=== PATIENT | male | born 1940 | race African-American/Black ===

== ENCOUNTER 2016-05-14 09:39 | Emergency (ER) | payer MEDICAID, MEDICARE ==
[~2016-05-14] VITALS: Ht 180.3 cm; Wt 55.0 kg
[2016-05-14] MEDS ORDERED: IPRATROPIUM BROMIDE (0.02%) 0.5MG/2.5ML NEB HHN STA (09:56)
[2016-05-14] MEDS ORDERED: ALBUTEROL (0.083%) 2.5MG/3ML NEB HHN STA (09:56)
[2016-05-14] MEDS ORDERED: METHYLPREDNISOLONE SOD SUCC 125 MG/2 ML VIAL IV STA (09:56)
[2016-05-14 10:26] LABS: BASOPHILS % 0.8 % (0.0-2.0); EOSINOPHILS % 11.3 % (0.0-5.0); HEMATOCRIT. 45.7 % (42.0-52.0); HEMOGLOBIN. 15.2 g/dL (14.0-18.0); LYMPHOCYTES % 26.1 % (20.0-50.0); MEAN CORPUSCULAR HEMOGLOBIN 31.9 pg (28.0-32.0); MEAN CORPUSCULAR HGB CONC 33.3 g/dL (31.0-37.0); MEAN CORPUSCULAR VOLUME 95.9 fL (80.0-94.0); MEAN PLATELET VOLUME 7.9 fl (7.4-10.4); MONOCYTES % 7.5 % (2.0-8.0); NEUTROPHILS % 54.3 % (40.0-76.0); PLATELET 164 x1000/uL (130-400); RED BLOOD CELL COUNT 4.76 mill/uL (4.7-6.1); RED CELL DISTRIBUTION WIDTH 14.5 % (11.6-14.6); WHITE BLOOD COUNT 4.9 x1000/uL (4.5-11.0)
[2016-05-14 10:35] LABS: CALCIUM 8.8 mg/dL (8.5-10.1); CHLORIDE 102 mEq/L (98-107); INDEX HEMOLYSI 1 (1-3); INDEX ICTERIC 1 (1-4); INDEX LIPEMIC 1 (1-3)
[2016-05-14 10:40] LABS: INR 1.1; PROTHROMBIN TIME 11.7 sec
[2016-05-14 10:41] LABS: ALANINE AMINOTRANSFERASE 29 IU/L (13-61); ALBUMIN 3.8 g/dL (3.4-5.0); ANION GAP 11; CARBON DIOXIDE 32 mEq/L (21-32); LIPASE 85 IU/L (73-393); UREA NITROGEN BLOOD 11 mg/dL (7-21); eGFR > 60 mL/min (>60)
[2016-05-14 10:44] LABS: NT PRO B-TYPE NATRIURETIC PEP 135 pg/mL (5-125); TROPONIN I 0.04 ng/mL (0.00-0.04)
[2016-05-14 11:44] VITALS: BP 150/89
== END 2016-05-14 12:59 | disposition home or self-care (01) ==
LOC: ER 10:45
DX: J20.9 Acute bronchitis, unspecified (principal); I10 Essential (primary) hypertension; F17.210 Nicotine dependence, cigarettes, uncomplicated
CPT/HCPCS: 36415; 71010; 80053; 83605; 83690; 83880; 84484; 85025; 85610; 87040; 93005; 94644; 96374; 99285; J2930; J7611

== ENCOUNTER 2016-09-20 08:03 | Inpatient (IN) | payer MEDICARE ==
[~2016-09-20] VITALS: Ht 157.5 cm; Wt 46.7 kg
[2016-09-20] MEDS ORDERED: METHYLPREDNISOLONE SOD SUCC 125 MG/2 ML VIAL IV STA (08:21)
[2016-09-20] MEDS ORDERED: LEVOFLOXACIN 750MG PREMIX 150 ML IV ONE (08:30)
[2016-09-20] MEDS ORDERED: IPRATROPIUM/ALBUTEROL 0.5-3(2.5)MG/3ML NEB HHN ONE (08:30)
[2016-09-20] MEDS ORDERED: MAGNESIUM 2 G PREMIX 50 ML IV ONE (08:30)
[2016-09-20 08:43] LABS: HEMATOCRIT. 45.5 % (42.0-52.0); HEMOGLOBIN. 15.5 g/dL (14.0-18.0); MEAN CORPUSCULAR HEMOGLOBIN 32.3 pg (28.0-32.0); MEAN CORPUSCULAR VOLUME 94.8 fL (80.0-94.0); MEAN PLATELET VOLUME 8.5 fl (7.4-10.4); PLATELET 153 x1000/uL (130-400)
[2016-09-20 08:50] LABS: INR 1.1; PARTIAL THROMBOPLASTIN TIME 30.6 sec (24.0-34.0); PROTHROMBIN TIME 11.1 sec
[2016-09-20 09:00] LABS: CARBON DIOXIDE 33 mEq/L (21-32); CHLORIDE 105 mEq/L (98-107); CREATINE KINASE 127 IU/L (39-308); TROPONIN I 0.04 ng/mL (0.00-0.04)
[2016-09-20 09:14] LABS: BG BASE EXCESS -2.1 mmol/L (-2.0-2.0); BG CARBOXYHEMOGLOBIN 1.1 % (0.5-1.5); BG DEOXYHEMOGLOBIN 3.5 % (0.0-5.0); BG FRACTION INSPIRED OXYGEN 21; BG HCO3 ACT 22.2 mmol/L (22.0-26.0); BG METHEMOGLOBIN 0.3 % (0.0-1.5); BG OXYGEN SATURATION 96.5 % (92.0-98.5); BG OXYHEMOGLOBIN 95.1 % (94.0-97.0); BG PCO2 36.6 mmHg (35.0-45.0); BG PO2 88.5 mmHg (75.0-100.0); BG SAMPLE SITE RIGHT BRACHIAL; BG TOTAL HEMOGLOBIN 14.9 g/dL (12.0-18.0); BG VENT MODE ROOM AIR
[2016-09-20 09:41] LABS: PLATELET ESTIMATE NORMAL
[2016-09-20 11:41] LABS: CLARITY URINE TURBID (CLEAR); COLOR URINE YELLOW (YELLOW); GLUCOSE URINE NEGATIVE (NEGATIVE); KETONES URINE NEGATIVE (NEGATIVE); LEUKOCYTE ESTERASE URINE NEGATIVE (NEGATIVE); NITRITE URINE POSITIVE (NEGATIVE); OCCULT BLOOD URINE NEGATIVE (NEGATIVE); PROTEIN URINE NEGATIVE (NEGATIVE); SPECIFIC GRAVITY URINE 1.011 (1.005-1.030); UROBILINOGEN URINE 0.2 E.U./dL (0.2-1.0)
[2016-09-20 13:50] VITALS: BP 154/105
[2016-09-20 13:55] VITALS: BP 164/88
[2016-09-20] MEDS ORDERED: DEXT 5%/0.45% NACL 1,000 ML IV SCH (15:15)
[2016-09-20] MEDS ORDERED: HYDROCODONE/ACETAMINOPHEN 5/325MG TABLET PO PRN (15:15)
[2016-09-20] MEDS ORDERED: ONDANSETRON HCL 4MG/2ML VIAL IV PRN (15:15)
[2016-09-20] MEDS ORDERED: IPRATROPIUM/ALBUTEROL 0.5-3(2.5)MG/3ML NEB HHN PRN (15:15)
[2016-09-20] MEDS ORDERED: ACETAMINOPHEN 325MG TABLET PO PRN (15:15)
[2016-09-20 16:00] VITALS: BP 164/88
[2016-09-20] MEDS ORDERED: PANTOPRAZOLE SODIUM 40 MG/VIAL IV NR (16:45)
[2016-09-20] MEDS: DOCUSATE SODIUM 100MG CAPSULE PO SCH (17:00)
[2016-09-20] MEDS ORDERED: ENOXAPARIN 40MG/0.4ML SYR SUBCUT NR (18:00)
[2016-09-20] MEDS: DEXT 5%/0.45% NACL 1000ML 1,000 ML IV SCH (18:07)
[2016-09-20 20:00] VITALS: BP 131/78
[2016-09-20] MEDS: METHYLPREDNISOLONE SOD SUCC 40 MG/ML VIAL IV SCH (21:08)
[2016-09-20] MEDS: IPRATROPIUM/ALBUTEROL 0.5-3(2.5)MG/3ML NEB HHN SCH (21:13)
[2016-09-21] VITALS: BP 140/78
[2016-09-21] MEDS: IPRATROPIUM/ALBUTEROL 0.5-3(2.5)MG/3ML NEB HHN SCH ×4 (02:18→21:17)
[2016-09-21 04:00] VITALS: BP 114/70
[2016-09-21] MEDS: METHYLPREDNISOLONE SOD SUCC 40 MG/ML VIAL IV SCH (05:15)
[2016-09-21] MEDS: DEXT 5%/0.45% NACL 1000ML 1,000 ML IV SCH ×2 (06:26→18:03)
[2016-09-21 06:37] LABS: BASOPHILS % 0.1 % (0.0-2.0); HEMATOCRIT. 36.4 % (42.0-52.0); HEMOGLOBIN. 12.3 g/dL (14.0-18.0); LYMPHOCYTES % 12.8 % (20.0-50.0); MEAN CORPUSCULAR HEMOGLOBIN 32.3 pg (28.0-32.0); MEAN CORPUSCULAR VOLUME 95.1 fL (80.0-94.0); MEAN PLATELET VOLUME 9.1 fl (7.4-10.4); MONOCYTES % 3.3 % (2.0-8.0); NEUTROPHILS % 83.8 % (40.0-76.0); PLATELET 133 x1000/uL (130-400); RED BLOOD CELL COUNT 3.82 mill/uL (4.7-6.1); RED CELL DISTRIBUTION WIDTH 13.9 % (11.6-14.6)
[2016-09-21 08:00] VITALS: BP 139/80
[2016-09-21 08:01] LABS: CARBON DIOXIDE 28 mEq/L (21-32); CHLORIDE 103 mEq/L (98-107)
[2016-09-21] MEDS: ASPIRIN 81MG TABLET PO SCH (09:00)
[2016-09-21] MEDS: DOCUSATE SODIUM 100MG CAPSULE PO SCH ×2 (09:00→17:07)
[2016-09-21] MEDS: PANTOPRAZOLE SODIUM 40 MG/VIAL IV SCH (09:24)
[2016-09-21] MEDS: ENOXAPARIN 40MG/0.4ML SYR SUBCUT SCH (09:25)
[2016-09-21 12:00] VITALS: BP 133/65
[2016-09-21] MEDS: GUAIFENESIN 600MG ER TABLET PO SCH ×2 (14:15→20:35)
[2016-09-21 16:00] VITALS: BP 130/68
[2016-09-21] MEDS ORDERED: ENOXAPARIN 40MG/0.4ML SYR SUBCUT SCH (16:00)
[2016-09-21 20:00] VITALS: BP 137/93
[2016-09-21] MEDS: BUDESONIDE 0.5MG/2ML NEB HHN SCH (21:18)
[2016-09-22] VITALS: BP 144/93
[2016-09-22] MEDS: IPRATROPIUM/ALBUTEROL 0.5-3(2.5)MG/3ML NEB HHN SCH ×2 (01:02→09:44)
[2016-09-22 04:00] VITALS: BP 139/76
[2016-09-22] MEDS: DEXT 5%/0.45% NACL 1000ML 1,000 ML IV SCH (06:36)
[2016-09-22 08:00] VITALS: BP 152/89
[2016-09-22] MEDS: DOCUSATE SODIUM 100MG CAPSULE PO SCH (08:38)
[2016-09-22] MEDS: GUAIFENESIN 600MG ER TABLET PO SCH (08:38)
[2016-09-22] MEDS: ASPIRIN 81MG TABLET PO SCH (08:38)
[2016-09-22] MEDS: PANTOPRAZOLE SODIUM 40 MG/VIAL IV SCH (08:39)
[2016-09-22] MEDS: ENOXAPARIN 40MG/0.4ML SYR SUBCUT SCH (08:39)
[2016-09-22] MEDS ORDERED: LEVOFLOXACIN 750MG PREMIX 150 ML IV SCH ×2 (09:00)
[2016-09-22] MEDS: BUDESONIDE 0.5MG/2ML NEB HHN SCH (09:44)
[2016-09-22] MEDS ORDERED: NA PHOS,M-B/NA PHOS,DI-BA ENEMA 118ML PR SCH (11:45)
[2016-09-22 11:51] VITALS: BP 120/78
[2016-09-22 12:00] VITALS: BP 128/86
== END 2016-09-22 15:15 | disposition home or self-care (01) | DRG 871 ==
LOC: ER 08:13 → 6WST 09:52 → ENRESERV 13:00
PROVIDERS: ADMIT Hospitalist; ATTEND Hospitalist
DX: A41.9 Sepsis, unspecified organism (principal); E43 Unspecified severe protein-calorie malnutrition; J96.00 Acute respiratory failure, unspecified whether with hypoxia or hypercapnia; J44.1 Chronic obstructive pulmonary disease with (acute) exacerbation; N39.0 Urinary tract infection, site not specified; Z68.1 Body mass index [BMI] 19.9 or less, adult; I10 Essential (primary) hypertension; K21.0 Gastro-esophageal reflux disease with esophagitis; M41.9 Scoliosis, unspecified; R13.19 Other dysphagia; Z87.891 Personal history of nicotine dependence
CPT/HCPCS: 36415; 36600; 71010; 80048; 80053; 81001; 82375; 82550; 82805; 83605; 83690; 83880; 84443; 84484; 85025; 85610; 85730; 87040; 92610; 93005; 93970; 94640; 96365; 96366; 96367; 96375; 99285; C1893; C9113; J1650; J1956; J2920; J2930; J3475; J3490; J7620; J7626

== ENCOUNTER 2016-11-18 03:32 | Inpatient (IN) | payer MEDICARE ==
[~2016-11-18] VITALS: Ht 175.3 cm; Wt 52.2 kg
[2016-11-18] MEDS ORDERED: ALBUTEROL (0.083%) 2.5MG/3ML NEB HHN STA (03:59)
[2016-11-18] MEDS ORDERED: IPRATROPIUM BROMIDE (0.02%) 0.5MG/2.5ML NEB HHN STA (03:59)
[2016-11-18] MEDS ORDERED: METHYLPREDNISOLONE SOD SUCC 125 MG/2 ML VIAL IV STA (03:59)
[2016-11-18 04:50] LABS: HEMATOCRIT. 41.7 % (42.0-52.0); MEAN CORPUSCULAR VOLUME 95.5 fL (80.0-94.0); MEAN PLATELET VOLUME 8.3 fl (7.4-10.4); PLATELET 139 x1000/uL (130-400); RED BLOOD CELL COUNT 4.37 mill/uL (4.7-6.1); RED CELL DISTRIBUTION WIDTH 14.3 % (11.6-14.6)
[2016-11-18 05:08] LABS: CARBON DIOXIDE 32 mEq/L (21-32); CHLORIDE 103 mEq/L (98-107); TROPONIN I 0.04 ng/mL (0.00-0.04)
[2016-11-18 05:46] LABS: BG BASE EXCESS 3.1 mmol/L (-2.0-2.0); BG CARBOXYHEMOGLOBIN 1.9 % (0.5-1.5); BG DEOXYHEMOGLOBIN 0.7 % (0.0-5.0); BG FRACTION INSPIRED OXYGEN 60; BG METHEMOGLOBIN 0.4 % (0.0-1.5); BG OXYGEN SATURATION 99.3 % (92.0-98.5); BG PCO2 49.4 mmHg (35.0-45.0); BG PH 7.387 (7.350-7.450); BG PO2 247.9 mmHg (75.0-100.0); BG SAMPLE SITE RIGHT FEMORAL; BG TOTAL HEMOGLOBIN 14.8 g/dL (12.0-18.0); BG VENT MODE ON TREATMENT
[2016-11-18 07:28] LABS: PLATELET ESTIMATE NORMAL
[2016-11-18] MEDS ORDERED: IPRATROPIUM/ALBUTEROL 0.5-3(2.5)MG/3ML NEB INH PRN (08:00)
[2016-11-18] MEDS ORDERED: DIPHENHYDRAMINE 50MG/ML VIAL IV PRN (08:00)
[2016-11-18] MEDS ORDERED: NA PHOS,M-B/NA PHOS,DI-BA ENEMA 118ML PR PRN (08:00)
[2016-11-18] MEDS ORDERED: CLONIDINE 0.1MG TABLET PO PRN (08:00)
[2016-11-18] MEDS ORDERED: DOCUSATE SODIUM 100MG CAPSULE PO PRN (08:00)
[2016-11-18] MEDS ORDERED: ONDANSETRON HCL 4MG/2ML VIAL IV PRN (08:00)
[2016-11-18] MEDS ORDERED: ACETAMINOPHEN 325MG TABLET PO PRN (08:00)
[2016-11-18] MEDS ORDERED: LORAZEPAM 2MG/ML CPJ IV PRN (08:00)
[2016-11-18] MEDS ORDERED: MAGNESIUM/ALUMINUM HYDROXIDE/SIMETHICONE 30ML UDC PO PRN (08:00)
[2016-11-18 09:30] VITALS: BP 153/87
[2016-11-18 09:40] VITALS: BP 153/87
[2016-11-18] MEDS: GUAIFENESIN/DM 600MG/30MG ER TAB 12HR PO SCH ×2 (10:20→21:00)
[2016-11-18] MEDS: AMLODIPINE 10MG TABLET PO SCH (10:21)
[2016-11-18] MEDS: ENOXAPARIN 40MG/0.4ML SYR SUBCUT SCH (10:22)
[2016-11-18] MEDS: FAMOTIDINE 20MG/2ML VIAL IV SCH (10:22)
[2016-11-18] MEDS: LEVOFLOXACIN 500MG PREMIX 100 ML IV SCH (11:05)
[2016-11-18 12:00] VITALS: BP 138/79
[2016-11-18] MEDS: METHYLPREDNISOLONE SOD SUCC 125 MG/2 ML VIAL IV SCH ×2 (14:34→23:22)
[2016-11-18 16:00] VITALS: BP 140/89
[2016-11-18 16:19] LABS: CREATINE KINASE MB FRACTION 2.9 ng/mL (0.5-3.6); TROPONIN I 0.03 ng/mL (0.00-0.04)
[2016-11-18 20:00] VITALS: BP 132/83
[2016-11-18] MEDS ORDERED: ZOLPIDEM TARTRATE 5MG TABLET PO PRN (21:00)
[2016-11-18] MEDS: TRAMADOL 50MG TABLET PO PRN (23:20)
[2016-11-18] MEDS: GUAIFENESIN 200MG/10ML SUGAR FREE UDC PO PRN ×3 (23:22→23:38)
[2016-11-18 23:35] LABS: CREATINE KINASE MB FRACTION 2.8 ng/mL (0.5-3.6); TROPONIN I 0.03 ng/mL (0.00-0.04)
[2016-11-18 23:48] VITALS: BP 149/84
[2016-11-19] MEDS: IPRATROPIUM/ALBUTEROL 0.5-3(2.5)MG/3ML NEB HHN SCH ×6 (05:15→23:48)
[2016-11-19 05:28] VITALS: BP 124/75
[2016-11-19] MEDS: METHYLPREDNISOLONE SOD SUCC 125 MG/2 ML VIAL IV SCH (06:47)
[2016-11-19 07:42] VITALS: BP 118/73
[2016-11-19] MEDS: FAMOTIDINE 20MG/2ML VIAL IV SCH (09:41)
[2016-11-19] MEDS: ENOXAPARIN 40MG/0.4ML SYR SUBCUT SCH (09:41)
[2016-11-19] MEDS: LEVOFLOXACIN 500MG PREMIX 100 ML IV SCH (09:42)
[2016-11-19] MEDS: AMLODIPINE 10MG TABLET PO SCH (09:42)
[2016-11-19] MEDS: GUAIFENESIN/DM 600MG/30MG ER TAB 12HR PO SCH ×2 (09:42→23:07)
[2016-11-19 11:19] VITALS: BP 110/74
[2016-11-19] MEDS ORDERED: DIATR MEGLU/DIATRIZOATE SOLN 30ML PO SCH (14:45)
[2016-11-19 15:41] VITALS: BP 127/71
[2016-11-19] MEDS: METHYLPREDNISOLONE SOD SUCC 40 MG/ML VIAL IV SCH ×2 (16:16→23:04)
[2016-11-19] MEDS: BUDESONIDE 0.5MG/2ML NEB HHN SCH (20:13)
[2016-11-19 21:07] VITALS: BP 135/77
[2016-11-19 21:09] LABS: CARCINO EMBRYONIC ANTIGEN 1.2 ng/ml
[2016-11-19 22:22] LABS: PROSTRATE SPECIFIC AG TOTAL 1.65 ng/mL (0.0-4.0)
[2016-11-19] MEDS: GUAIFENESIN 600MG ER TABLET PO SCH (23:04)
[2016-11-20] VITALS: BP 124/70
[2016-11-20] MEDS: IPRATROPIUM/ALBUTEROL 0.5-3(2.5)MG/3ML NEB HHN SCH ×5 (04:11→21:10)
[2016-11-20 04:32] VITALS: BP 131/71
[2016-11-20] MEDS: METHYLPREDNISOLONE SOD SUCC 40 MG/ML VIAL IV SCH ×3 (06:42→21:23)
[2016-11-20] MEDS: GUAIFENESIN 200MG/10ML SUGAR FREE UDC PO PRN (06:52)
[2016-11-20] MEDS: TRAMADOL 50MG TABLET PO PRN (06:57)
[2016-11-20 07:33] VITALS: BP 147/98
[2016-11-20] MEDS: GUAIFENESIN 600MG ER TABLET PO SCH ×2 (09:00→20:23)
[2016-11-20] MEDS: BUDESONIDE 0.5MG/2ML NEB HHN SCH ×2 (10:01→21:09)
[2016-11-20] MEDS: LEVOFLOXACIN 250MG PREMIX 50 ML IV SCH (10:23)
[2016-11-20] MEDS: ENOXAPARIN 40MG/0.4ML SYR SUBCUT SCH (10:24)
[2016-11-20] MEDS: AMLODIPINE 10MG TABLET PO SCH (10:24)
[2016-11-20] MEDS: GUAIFENESIN/DM 600MG/30MG ER TAB 12HR PO SCH ×2 (10:25→20:24)
[2016-11-20] MEDS: FAMOTIDINE 20MG/2ML VIAL IV SCH (10:26)
[2016-11-20 11:37] VITALS: BP 115/76
[2016-11-20 16:03] VITALS: BP 124/73
[2016-11-20 17:02] LABS: CLARITY URINE CLEAR (CLEAR); COLOR URINE YELLOW (YELLOW); GLUCOSE URINE NEGATIVE (NEGATIVE); KETONES URINE NEGATIVE (NEGATIVE); LEUKOCYTE ESTERASE URINE NEGATIVE (NEGATIVE); NITRITE URINE NEGATIVE (NEGATIVE); OCCULT BLOOD URINE NEGATIVE (NEGATIVE); PROTEIN URINE NEGATIVE (NEGATIVE); SPECIFIC GRAVITY URINE 1.018 (1.005-1.030)
[2016-11-20 20:00] VITALS: BP 132/88
[2016-11-21] VITALS: BP 119/72
[2016-11-21] MEDS: IPRATROPIUM/ALBUTEROL 0.5-3(2.5)MG/3ML NEB HHN SCH ×6 (01:03→20:31)
[2016-11-21 04:00] VITALS: BP 122/76
[2016-11-21] MEDS: METHYLPREDNISOLONE SOD SUCC 40 MG/ML VIAL IV SCH (05:22)
[2016-11-21 08:00] VITALS: BP 132/83
[2016-11-21] MEDS: BUDESONIDE 0.5MG/2ML NEB HHN SCH ×2 (09:53→20:31)
[2016-11-21] MEDS: GUAIFENESIN 600MG ER TABLET PO SCH ×2 (09:58→21:01)
[2016-11-21] MEDS: ENOXAPARIN 40MG/0.4ML SYR SUBCUT SCH (09:59)
[2016-11-21] MEDS: FAMOTIDINE 20MG/2ML VIAL IV SCH (09:59)
[2016-11-21] MEDS: AMLODIPINE 10MG TABLET PO SCH (09:59)
[2016-11-21] MEDS: GUAIFENESIN/DM 600MG/30MG ER TAB 12HR PO SCH ×2 (09:59→21:01)
[2016-11-21] MEDS: LEVOFLOXACIN 250MG PREMIX 50 ML IV SCH (10:00)
[2016-11-21 12:00] VITALS: BP 137/89
[2016-11-21] MEDS: THROAT LOZENGES-BENZOCAINE/MENTH/CETYLPYRD CL LOZENGES MM PRN (14:09)
[2016-11-21 16:00] VITALS: BP 133/75
[2016-11-21 20:00] VITALS: BP 144/84
[2016-11-22 00:20] VITALS: BP 137/79
[2016-11-22] MEDS: IPRATROPIUM/ALBUTEROL 0.5-3(2.5)MG/3ML NEB HHN SCH ×6 (00:46→19:58)
[2016-11-22 04:00] VITALS: BP 122/79
[2016-11-22 08:00] VITALS: BP 130/78
[2016-11-22] MEDS: BUDESONIDE 0.5MG/2ML NEB HHN SCH ×2 (08:06→19:58)
[2016-11-22] MEDS: FAMOTIDINE 20MG/2ML VIAL IV SCH (08:33)
[2016-11-22] MEDS: GUAIFENESIN/DM 600MG/30MG ER TAB 12HR PO SCH (08:33)
[2016-11-22] MEDS: GUAIFENESIN 600MG ER TABLET PO SCH ×2 (08:33→21:42)
[2016-11-22] MEDS: AMLODIPINE 10MG TABLET PO SCH (08:33)
[2016-11-22] MEDS: ENOXAPARIN 40MG/0.4ML SYR SUBCUT SCH (08:34)
[2016-11-22] MEDS ORDERED: PREDNISONE 20MG TABLET PO SCH (09:00)
[2016-11-22] MEDS ORDERED: SODIUM CHLORIDE 0.9% 100 ML IV SCH (11:00)
[2016-11-22] MEDS: LEVOFLOXACIN 250MG PREMIX 50 ML IV SCH (11:24)
[2016-11-22] MEDS: SODIUM CHLORIDE 0.9% 1,000 ML IV SCH (11:25)
[2016-11-22] MEDS: THROAT LOZENGES-BENZOCAINE/MENTH/CETYLPYRD CL LOZENGES MM PRN (11:30)
[2016-11-22 12:00] VITALS: BP 126/73
[2016-11-22] MEDS ORDERED: IOHEXOL-300 100 ML BOTTLE ONE (13:27)
[2016-11-22] MEDS ORDERED: SODIUM CHLORIDE 0.9% 10ML VIAL ONE (13:27)
[2016-11-22 16:00] VITALS: BP 130/80
[2016-11-22 16:03] LABS: CHLORIDE 98 mEq/L (98-107)
[2016-11-22 16:10] LABS: CARBON DIOXIDE 32 mEq/L (21-32)
[2016-11-22] MEDS ORDERED: LIDOCAINE HCL 20 MG/ML 100ML BOTTLE MM PRN (18:00)
[2016-11-22 20:00] VITALS: BP 130/80
[2016-11-22] MEDS: TRAMADOL 50MG TABLET PO PRN (21:44)
[2016-11-23] VITALS: BP 128/74
[2016-11-23] MEDS: IPRATROPIUM/ALBUTEROL 0.5-3(2.5)MG/3ML NEB HHN SCH ×4 (00:03→12:25)
[2016-11-23 04:00] VITALS: BP 128/83
[2016-11-23] MEDS: SODIUM CHLORIDE 0.9% 1,000 ML IV SCH (06:26)
[2016-11-23 08:00] VITALS: BP 120/79
[2016-11-23] MEDS: BUDESONIDE 0.5MG/2ML NEB HHN SCH (08:35)
[2016-11-23] MEDS: AMLODIPINE 10MG TABLET PO SCH (09:28)
[2016-11-23] MEDS: GUAIFENESIN 200MG/10ML SUGAR FREE UDC PO PRN (09:28)
[2016-11-23] MEDS: ENOXAPARIN 40MG/0.4ML SYR SUBCUT SCH (09:28)
[2016-11-23] MEDS: GUAIFENESIN 600MG ER TABLET PO SCH (09:28)
[2016-11-23] MEDS: FAMOTIDINE 20MG/2ML VIAL IV SCH (09:28)
[2016-11-23] MEDS: THROAT LOZENGES-BENZOCAINE/MENTH/CETYLPYRD CL LOZENGES MM PRN (09:29)
[2016-11-23] MEDS ORDERED: LEVOFLOXACIN 250MG TABLET PO SCH (11:00)
[2016-11-23 12:00] VITALS: BP 120/79
[2016-11-23 12:45] VITALS: BP 120/79
== END 2016-11-23 13:50 | disposition home or self-care (01) | DRG 871 ==
LOC: ER 03:32 → 6WST 05:34 → EDBEDREQ 06:09 → ENRESERV 07:24
PROVIDERS: ADMIT Internal Medicine; ATTEND Internal Medicine
DX: A41.9 Sepsis, unspecified organism (principal); J96.00 Acute respiratory failure, unspecified whether with hypoxia or hypercapnia; E43 Unspecified severe protein-calorie malnutrition; J44.1 Chronic obstructive pulmonary disease with (acute) exacerbation; M41.9 Scoliosis, unspecified; R64 Cachexia; N39.0 Urinary tract infection, site not specified; Z68.1 Body mass index [BMI] 19.9 or less, adult; F17.210 Nicotine dependence, cigarettes, uncomplicated; I10 Essential (primary) hypertension; K59.00 Constipation, unspecified; R62.7 Adult failure to thrive; Z82.49 Family history of ischemic heart disease and other diseases of the circulatory system
CPT/HCPCS: 36415; 36600; 70491; 71010; 71250; 74176; 80048; 80061; 81003; 82105; 82375; 82378; 82550; 82553; 82805; 83036; 83880; 84153; 84484; 85025; 85379; 87040; 87086; 87186; 92610; 93005; 93306; 93970; 94640; 94664; 96374; 97162; 97166; 99291; A4216; J1650; J1956; J2920; J2930; J3490; J7030; J7040; J7512; J7611; J7620; J7626; Q9963; Q9967

== ENCOUNTER 2018-07-05 01:48 | Inpatient (IN) | payer MEDICARE ==
[~2018-07-05] VITALS: Ht 175.3 cm; Wt 59.0 kg
[~2018-07-05 01:48] MED LIST: ALBU2SYR3 PO; ASPI-1159 MT; ATOR10TA MT; NITR-87 MT; P20 MT; PROT40 MT; SUCR1TAB30 MT
[2018-07-05] MEDS ORDERED: IPRATROPIUM BROMIDE (0.02%) 0.5MG/2.5ML NEB HHN STA (01:56)
[2018-07-05] MEDS ORDERED: METHYLPREDNISOLONE SOD SUCC 125 MG/2 ML VIAL IV STA (01:56)
[2018-07-05] MEDS ORDERED: ALBUTEROL (0.083%) 2.5MG/3ML NEB HHN STA (01:56)
[2018-07-05] MEDS ORDERED: ASPIRIN 81MG TABLET PO ONE (02:00)
[2018-07-05 02:50] LABS: HEMATOCRIT. 38.8 % (42.0-52.0); HEMOGLOBIN. 12.8 g/dL (14.0-18.0); MEAN CORPUSCULAR VOLUME 93.9 fL (80.0-94.0); MEAN PLATELET VOLUME 7.9 fl (7.4-10.4); PLATELET 192 x1000/uL (130-400); RED BLOOD CELL COUNT 4.13 mill/uL (4.7-6.1); RED CELL DISTRIBUTION WIDTH 15.1 % (11.6-14.6)
[2018-07-05 02:57] LABS: CHLORIDE 106 mEq/L (98-107)
[2018-07-05 03:27] LABS: PLATELET ESTIMATE NORMAL
[2018-07-05 06:18] LABS: BG BASE EXCESS -0.2 mmol/L (-2.0-2.0); BG BILEVEL POS AIRWAY PRESSURE 15/5; BG CARBOXYHEMOGLOBIN 0.3 % (0.5-1.5); BG DEOXYHEMOGLOBIN 0.9 % (0.0-5.0); BG HCO3 ACT 25.4 mmol/L (22.0-26.0); BG OXYGEN SATURATION 99.1 % (92.0-98.5); BG OXYHEMOGLOBIN 98.8 % (94.0-97.0); BG PCO2 45.1 mmHg (35.0-45.0); BG PH 7.368 (7.350-7.450); BG PO2 185.2 mmHg (75.0-100.0); BG SAMPLE SITE RIGHT BRACHIAL; BG TIDAL VOLUME(mL) 415 mL; BG TOTAL HEMOGLOBIN 13.1 g/dL (12.0-18.0); BG VENT MODE MASK - BIPAP; BG VENT RATE 14 set
[2018-07-05] MEDS ORDERED: ONDANSETRON HCL 4MG/2ML INJ IV PRN (07:45)
[2018-07-05] MEDS ORDERED: MAGNESIUM/ALUMINUM HYDROXIDE/SIMETHICONE 30ML UDC PO PRN (07:45)
[2018-07-05] MEDS ORDERED: NITROGLYCERIN 0.4MG TABLET SL SL PRN (07:45)
[2018-07-05] MEDS ORDERED: IPRATROPIUM/ALBUTEROL 0.5-3(2.5)MG/3ML NEB INH PRN (07:45)
[2018-07-05] MEDS ORDERED: DOCUSATE SODIUM 100MG CAPSULE PO PRN (07:45)
[2018-07-05] MEDS ORDERED: CLONIDINE 0.1MG TABLET PO PRN (07:45)
[2018-07-05] MEDS ORDERED: ACETAMINOPHEN 325MG TABLET PO PRN (07:45)
[2018-07-05] MEDS ORDERED: GUAIFENESIN 200MG/10ML SUGAR FREE UDC PO PRN (07:45)
[2018-07-05] MEDS ORDERED: LORAZEPAM 0.5MG TABLET PO PRN (16:30)
[2018-07-05 16:45] VITALS: BP 147/91
[2018-07-05 16:50] VITALS: BP 147/91
[2018-07-05] MEDS ORDERED: LEVOFLOXACIN 500MG PREMIX 100 ML IV SCH (18:00)
[2018-07-05] MEDS: SUCRALFATE 1 G/10 ML UDC PO SCH ×2 (19:01→21:50)
[2018-07-05] MEDS: ENOXAPARIN 40MG/0.4ML SYR SUBCUT SCH (19:02)
[2018-07-05] MEDS: ASPIRIN 325MG EC TABLET PO SCH (19:03)
[2018-07-05 20:00] VITALS: BP 146/89
[2018-07-05] MEDS ORDERED: ZOLPIDEM TARTRATE 5MG TABLET PO PRN (21:00)
[2018-07-05] MEDS: METHYLPREDNISOLONE SOD SUCC 125 MG/2 ML VIAL IV SCH (21:49)
[2018-07-05] MEDS: GUAIFENESIN/DM 600MG/30MG ER TAB 12HR PO SCH (21:49)
[2018-07-05] MEDS: FAMOTIDINE 20MG TABLET PO SCH (21:49)
[2018-07-06] VITALS (7 sets, daily range): BP systolic 127–170; BP diastolic 73–87
[2018-07-06 00:07] LABS: CREATINE KINASE MB FRACTION 3.1 ng/mL (0.5-3.6)
[2018-07-06] MEDS: IPRATROPIUM/ALBUTEROL 0.5-3(2.5)MG/3ML NEB HHN SCH ×6 (00:55→20:28)
[2018-07-06] MEDS: METHYLPREDNISOLONE SOD SUCC 125 MG/2 ML VIAL IV SCH ×2 (05:31→15:02)
[2018-07-06] MEDS: GUAIFENESIN/DM 600MG/30MG ER TAB 12HR PO SCH ×2 (08:50→21:28)
[2018-07-06] MEDS: FAMOTIDINE 20MG TABLET PO SCH (08:50)
[2018-07-06] MEDS: ASPIRIN 325MG EC TABLET PO SCH (08:50)
[2018-07-06] MEDS: SUCRALFATE 1 G/10 ML UDC PO SCH ×4 (08:50→21:28)
[2018-07-06] MEDS: PANTOPRAZOLE SODIUM 40 MG/VIAL IV SCH (15:02)
[2018-07-06] MEDS: ENOXAPARIN 40MG/0.4ML SYR SUBCUT SCH (18:06)
[2018-07-06] MEDS: LEVOFLOXACIN 500MG PREMIX 100 ML IV SCH (21:29)
[2018-07-07] MEDS: IPRATROPIUM/ALBUTEROL 0.5-3(2.5)MG/3ML NEB HHN SCH ×5 (00:24→21:00)
[2018-07-07 04:35] VITALS: BP 133/79
[2018-07-07 08:00] VITALS: BP 147/89
[2018-07-07] MEDS: SUCRALFATE 1 G/10 ML UDC PO SCH ×4 (08:01→20:52)
[2018-07-07] MEDS: PANTOPRAZOLE SODIUM 40 MG/VIAL IV SCH (08:01)
[2018-07-07] MEDS: GUAIFENESIN/DM 600MG/30MG ER TAB 12HR PO SCH ×2 (08:01→20:52)
[2018-07-07] MEDS: ASPIRIN 325MG EC TABLET PO SCH (08:03)
[2018-07-07] MEDS ORDERED: METHYLPREDNISOLONE SOD SUCC 40 MG/ML VIAL IV SCH (09:00)
[2018-07-07] MEDS ORDERED: BARIUM SULFATE 176 GM SUSP.RECON ONE (09:02)
[2018-07-07 12:00] VITALS: BP 163/85
[2018-07-07] MEDS ORDERED: SODIUM BICARBONATE 4% (2.4MEQ) 5ML VIAL IV ONE (13:43)
[2018-07-07 16:00] VITALS: BP 153/86
[2018-07-07 16:41] LABS: CHLORIDE 104 mEq/L (98-107)
[2018-07-07] MEDS: MONTELUKAST SODIUM 10MG TABLET PO SCH (17:00)
[2018-07-07] MEDS: ENOXAPARIN 40MG/0.4ML SYR SUBCUT SCH (17:07)
[2018-07-07 20:00] VITALS: BP 153/86
[2018-07-07] MEDS: LEVOFLOXACIN 500MG PREMIX 100 ML IV SCH (20:52)
[2018-07-07] MEDS: DEXT 5%/0.9% NACL KCL 20MEQ/L 1,000 ML IV SCH (23:23)
[2018-07-08] VITALS: BP 135/89
[2018-07-08] MEDS: IPRATROPIUM/ALBUTEROL 0.5-3(2.5)MG/3ML NEB HHN SCH ×4 (01:52→20:55)
[2018-07-08 04:00] VITALS: BP 139/79
[2018-07-08 06:39] LABS: INR 1.1; PROTHROMBIN TIME 11.2 sec (9.6-11.0)
[2018-07-08 06:46] LABS: BASOPHILS % 0.3 % (0.0-2.0); EOSINOPHILS % 0.4 % (0.0-5.0); HEMOGLOBIN. 12.6 g/dL (14.0-18.0); LYMPHOCYTES % 28.2 % (20.0-50.0); MEAN CORPUSCULAR VOLUME 94.2 fL (80.0-94.0); MEAN PLATELET VOLUME 8.1 fl (7.4-10.4); MONOCYTES % 10.9 % (2.0-8.0); NEUTROPHILS % 60.2 % (40.0-76.0); PLATELET 151 x1000/uL (130-400); RED BLOOD CELL COUNT 3.92 mill/uL (4.7-6.1); RED CELL DISTRIBUTION WIDTH 14.5 % (11.6-14.6)
[2018-07-08] MEDS: SUCRALFATE 1 G/10 ML UDC PO SCH ×4 (07:40→21:00)
[2018-07-08] MEDS: PREDNISONE 20MG TABLET PO SCH (07:47)
[2018-07-08] MEDS: GUAIFENESIN/DM 600MG/30MG ER TAB 12HR PO SCH ×2 (07:47→21:00)
[2018-07-08] MEDS: DEXT 5%/0.9% NACL KCL 20MEQ/L 1,000 ML IV SCH ×2 (08:46→20:02)
[2018-07-08] MEDS: PANTOPRAZOLE SODIUM 40 MG/VIAL IV SCH (08:51)
[2018-07-08 12:00] VITALS: BP 144/86
[2018-07-08] MEDS: MONTELUKAST SODIUM 10MG TABLET PO SCH (15:13)
[2018-07-08 16:00] VITALS: BP 139/62
[2018-07-08 20:00] VITALS: BP 146/86
[2018-07-08] MEDS: LEVOFLOXACIN 500MG PREMIX 100 ML IV SCH (20:02)
[2018-07-09] VITALS (40 sets, daily range): BP systolic 84–161; BP diastolic 53–90
[2018-07-09] MEDS: IPRATROPIUM/ALBUTEROL 0.5-3(2.5)MG/3ML NEB HHN SCH ×4 (02:10→20:34)
[2018-07-09] MEDS: DEXT 5%/0.9% NACL KCL 20MEQ/L 1,000 ML IV SCH (05:24)
[2018-07-09 06:08] LABS: BASOPHILS % 0.4 % (0.0-2.0); HEMATOCRIT. 38.3 % (42.0-52.0); HEMOGLOBIN. 12.7 g/dL (14.0-18.0); LYMPHOCYTES % 31.6 % (20.0-50.0); MEAN CORPUSCULAR HEMOGLOBIN 31.1 pg (28.0-32.0); MEAN PLATELET VOLUME 8.5 fl (7.4-10.4); PLATELET 151 x1000/uL (130-400); RED BLOOD CELL COUNT 4.07 mill/uL (4.7-6.1); RED CELL DISTRIBUTION WIDTH 14.3 % (11.6-14.6)
[2018-07-09 06:26] LABS: CHLORIDE 106 mEq/L (98-107)
[2018-07-09] MEDS: SUCRALFATE 1 G/10 ML UDC PO SCH ×4 (07:40→21:00)
[2018-07-09] MEDS: GUAIFENESIN/DM 600MG/30MG ER TAB 12HR PO SCH ×2 (09:00→21:00)
[2018-07-09] MEDS: PREDNISONE 20MG TABLET PO SCH (09:00)
[2018-07-09] MEDS: PANTOPRAZOLE SODIUM 40 MG/VIAL IV SCH (09:53)
[2018-07-09] MEDS ORDERED: THROMBIN (BOVINE) 5000 UNITS/VIAL TOP ONE ×4 (10:45→11:25)
[2018-07-09] MEDS ORDERED: NORMAL SALINE 0.9% 10 ML SYR ONE (10:46)
[2018-07-09] MEDS ORDERED: LIDOCAINE HCL/EPINEPHRINE 1%-EPI 1:100,000 20 ML VIAL ONE (10:46)
[2018-07-09] MEDS ORDERED: BACITRACIN 50,000 UNITS/VIAL ONE (10:47)
[2018-07-09] MEDS ORDERED: FENTANYL CITRATE/PF 50MCG/ML 2ML VIAL ONE ×2 (11:28→13:11)
[2018-07-09] MEDS ORDERED: NEOSTIGMINE METHYLSULFATE 1MG/ML 10 ML VIAL ONE (11:28)
[2018-07-09] MEDS ORDERED: PROPOFOL 200MG/20ML VIAL IV ONE (11:29)
[2018-07-09] MEDS ORDERED: ROCURONIUM BROMIDE 10MG/ML VIAL 5ML IV ONE (11:29)
[2018-07-09] MEDS ORDERED: MIDAZOLAM HCL 2 MG/2 ML VIAL ONE (11:29)
[2018-07-09] MEDS ORDERED: GLYCOPYRROLATE 0.2 MG/ML 2ML VIAL ONE (11:29)
[2018-07-09] MEDS ORDERED: ONDANSETRON HCL 4MG/2ML INJ ONE (12:42)
[2018-07-09] MEDS ORDERED: DEXAMETHASONE 4MG/ML 1ML VIAL ONE (12:42)
[2018-07-09] MEDS ORDERED: MEPERIDINE HCL/PF 25MG/ML CPJ IV PRN (14:00)
[2018-07-09] MEDS ORDERED: HYDROMORPHONE HCL/PF 2MG/ML CPJ IV PRN (14:00)
[2018-07-09] MEDS ORDERED: ONDANSETRON HCL 4MG/2ML INJ IV PRN (14:00)
[2018-07-09] MEDS ORDERED: LABETALOL 5MG/ML SYR 20 MG/4 ML SYRINGE IV PRN (14:00)
[2018-07-09] MEDS ORDERED: HYDROMORPHONE HCL/PF 2MG/ML (OR) ONE (15:22)
[2018-07-09] MEDS ORDERED: SODIUM CHLORIDE 0.9% 10ML VIAL ONE (15:30)
[2018-07-09] MEDS ORDERED: CEFAZOLIN SODIUM 1000MG/VIAL ONE (15:30)
[2018-07-09] MEDS ORDERED: NICARDIPINE 100 MG in SODIUM CHLORIDE 0.9% 60 ML IV PRN (15:30)
[2018-07-09] MEDS ORDERED: MORPHINE SULFATE 4 MG/ML CPJ (NOT FOR IM USE) IV PRN (15:30)
[2018-07-09] MEDS: DEXT 5%/LACTATED RINGERS 1,000 ML IV SCH ×2 (16:01→23:50)
[2018-07-09] MEDS: MONTELUKAST SODIUM 10MG TABLET PO SCH (16:14)
[2018-07-09 16:51] LABS: BG BASE EXCESS 0.2 mmol/L (-2.0-2.0); BG CARBOXYHEMOGLOBIN 0.2 % (0.5-1.5); BG DEOXYHEMOGLOBIN 0.5 % (0.0-5.0); BG FRACTION INSPIRED OXYGEN 100; BG HCO3 ACT 27.1 mmol/L (22.0-26.0); BG METHEMOGLOBIN 0.2 % (0.0-1.5); BG OXYGEN SATURATION 99.5 % (92.0-98.5); BG OXYHEMOGLOBIN 99.1 % (94.0-97.0); BG PCO2 54.4 mmHg (35.0-45.0); BG PH 7.316 (7.350-7.450); BG PO2 557.8 mmHg (75.0-100.0); BG SAMPLE SITE RIGHT RADIAL; BG TIDAL VOLUME(mL) 400 mL; BG TOTAL HEMOGLOBIN 12.2 g/dL (12.0-18.0); BG VENT MODE VENT - A/C; BG VENT RATE 10 set
[2018-07-09] MEDS: PROPOFOL 10MG/ML 100ML 100 ML IV PRN (17:06)
[2018-07-09] MEDS: DEXAMETHASONE 4MG/ML 1ML VIAL IV SCH ×2 (17:15→23:50)
[2018-07-09] MEDS ORDERED: SODIUM CHLORIDE 0.9% 500 ML IV ONE (19:15)
[2018-07-09] MEDS: LEVOFLOXACIN 250MG PREMIX 50 ML IV SCH (20:05)
[2018-07-09 21:10] LABS: HEMATOCRIT 37.4 % (42.0-52.0); HEMOGLOBIN 12.2 g/dL (14.0-18.0)
[2018-07-09] MEDS ORDERED: CEFAZOLIN SODIUM 1000MG/VIAL IV SCH (22:00)
[2018-07-09] MEDS: CEFAZOLIN 1000MG PREMIX 50 ML IV SCH (22:03)
[2018-07-10] VITALS (99 sets, daily range): BP systolic 71–171; BP diastolic 33–121
[2018-07-10 04:43] LABS: HEMATOCRIT. 35.1 % (42.0-52.0); HEMOGLOBIN. 11.7 g/dL (14.0-18.0); MEAN CORPUSCULAR HEMOGLOBIN 31.5 pg (28.0-32.0); MEAN CORPUSCULAR VOLUME 94.2 fL (80.0-94.0); MEAN PLATELET VOLUME 8.3 fl (7.4-10.4); PLATELET 140 x1000/uL (130-400); RED BLOOD CELL COUNT 3.73 mill/uL (4.7-6.1); RED CELL DISTRIBUTION WIDTH 14.1 % (11.6-14.6)
[2018-07-10] MEDS: DEXT 5%/LACTATED RINGERS 1,000 ML IV SCH ×3 (04:50→18:10)
[2018-07-10 05:43] LABS: CHLORIDE 106 mEq/L (98-107)
[2018-07-10] MEDS: PROPOFOL 10MG/ML 100ML 100 ML IV PRN (06:18)
[2018-07-10] MEDS: CEFAZOLIN 1000MG PREMIX 50 ML IV SCH ×3 (06:18→22:49)
[2018-07-10] MEDS: SUCRALFATE 1 G/10 ML UDC PO SCH ×4 (06:19→20:55)
[2018-07-10] MEDS: DEXAMETHASONE 4MG/ML 1ML VIAL IV SCH ×3 (06:19→18:13)
[2018-07-10] MEDS: IPRATROPIUM/ALBUTEROL 0.5-3(2.5)MG/3ML NEB HHN SCH ×2 (07:36→20:21)
[2018-07-10 07:47] LABS: BG CARBOXYHEMOGLOBIN 0.3 % (0.5-1.5); BG DEOXYHEMOGLOBIN 1.5 % (0.0-5.0); BG HCO3 ACT 21.4 mmol/L (22.0-26.0); BG METHEMOGLOBIN 0.2 % (0.0-1.5); BG OXYGEN SATURATION 98.5 % (92.0-98.5); BG PCO2 36.1 mmHg (35.0-45.0); BG PH 7.391 (7.350-7.450); BG PO2 144.9 mmHg (75.0-100.0); BG SAMPLE SITE RIGHT BRACHIAL; BG TIDAL VOLUME(mL) 450 mL; BG TOTAL HEMOGLOBIN 11.8 g/dL (12.0-18.0); BG VENT MODE VENT - A/C; BG VENT RATE 12 set
[2018-07-10 08:35] LABS: PLATELET ESTIMATE NORMAL
[2018-07-10] MEDS: GUAIFENESIN/DM 600MG/30MG ER TAB 12HR PO SCH ×2 (09:00→20:55)
[2018-07-10] MEDS: PREDNISONE 20MG TABLET PO SCH (09:00)
[2018-07-10] MEDS: PANTOPRAZOLE SODIUM 40 MG/VIAL IV SCH (09:18)
[2018-07-10 11:36] LABS: BG BASE EXCESS 1.5 mmol/L (-2.0-2.0); BG CARBOXYHEMOGLOBIN 0.4 % (0.5-1.5); BG CPAP (cmH2O) 0 cm(H2O); BG DEOXYHEMOGLOBIN 1.5 % (0.0-5.0); BG HCO3 ACT 27.7 mmol/L (22.0-26.0); BG METHEMOGLOBIN 0.2 % (0.0-1.5); BG OXYGEN SATURATION 98.5 % (92.0-98.5); BG OXYHEMOGLOBIN 97.9 % (94.0-97.0); BG PCO2 50.3 mmHg (35.0-45.0); BG PH 7.358 (7.350-7.450); BG PO2 139.8 mmHg (75.0-100.0); BG SAMPLE SITE RIGHT BRACHIAL; BG VENT MODE VENT - CPAP
[2018-07-10] MEDS: MONTELUKAST SODIUM 10MG TABLET PO SCH (16:46)
[2018-07-10] MEDS: LEVOFLOXACIN 250MG PREMIX 50 ML IV SCH (20:54)
[2018-07-11] VITALS (29 sets, daily range): BP systolic 68–192; BP diastolic 51–175
[2018-07-11] MEDS: DEXT 5%/LACTATED RINGERS 1,000 ML IV SCH ×4 (00:20→20:47)
[2018-07-11] MEDS: IPRATROPIUM/ALBUTEROL 0.5-3(2.5)MG/3ML NEB HHN SCH ×4 (00:55→20:17)
[2018-07-11] MEDS: DEXAMETHASONE 4MG/ML 1ML VIAL IV SCH ×5 (01:01→23:57)
[2018-07-11 05:03] LABS: HEMATOCRIT. 33.5 % (42.0-52.0); HEMOGLOBIN. 11.4 g/dL (14.0-18.0); MEAN CORPUSCULAR HEMOGLOBIN 31.7 pg (28.0-32.0); MEAN CORPUSCULAR VOLUME 93.3 fL (80.0-94.0); MEAN PLATELET VOLUME 8.7 fl (7.4-10.4); PLATELET 143 x1000/uL (130-400); RED BLOOD CELL COUNT 3.59 mill/uL (4.7-6.1); RED CELL DISTRIBUTION WIDTH 14.4 % (11.6-14.6)
[2018-07-11 05:12] LABS: CHLORIDE 108 mEq/L (98-107)
[2018-07-11] MEDS: SUCRALFATE 1 G/10 ML UDC PO SCH ×4 (06:22→21:00)
[2018-07-11] MEDS: PANTOPRAZOLE SODIUM 40 MG/VIAL IV SCH (08:04)
[2018-07-11] MEDS: PREDNISONE 20MG TABLET PO SCH (08:34)
[2018-07-11] MEDS: GUAIFENESIN/DM 600MG/30MG ER TAB 12HR PO SCH ×2 (08:34→21:00)
[2018-07-11 09:34] LABS: PLATELET ESTIMATE NORMAL
[2018-07-11] MEDS: MONTELUKAST SODIUM 10MG TABLET PO SCH (16:05)
[2018-07-11] MEDS ORDERED: MINERAL OIL ENEMA 133ML PR NR (21:30)
[2018-07-11] MEDS: LEVOFLOXACIN 250MG PREMIX 50 ML IV SCH (23:36)
[2018-07-12] VITALS: BP 130/74
[2018-07-12] MEDS: IPRATROPIUM/ALBUTEROL 0.5-3(2.5)MG/3ML NEB HHN SCH ×4 (00:48→21:17)
[2018-07-12 04:00] VITALS: BP 145/83
[2018-07-12] MEDS: DEXT 5%/LACTATED RINGERS 1,000 ML IV SCH ×4 (04:06→20:38)
[2018-07-12] MEDS: DEXAMETHASONE 4MG/ML 1ML VIAL IV SCH ×3 (05:30→18:43)
[2018-07-12 06:55] LABS: HEMATOCRIT. 30.1 % (42.0-52.0); HEMOGLOBIN. 10.2 g/dL (14.0-18.0); LYMPHOCYTES % 7.9 % (20.0-50.0); MEAN CORPUSCULAR HEMOGLOBIN 31.8 pg (28.0-32.0); MEAN CORPUSCULAR VOLUME 93.6 fL (80.0-94.0); MEAN PLATELET VOLUME 8.6 fl (7.4-10.4); MONOCYTES % 5.5 % (2.0-8.0); NEUTROPHILS % 86.6 % (40.0-76.0); PLATELET 137 x1000/uL (130-400); RED BLOOD CELL COUNT 3.22 mill/uL (4.7-6.1); RED CELL DISTRIBUTION WIDTH 14.3 % (11.6-14.6)
[2018-07-12 07:03] LABS: CHLORIDE 107 mEq/L (98-107)
[2018-07-12] MEDS: SUCRALFATE 1 G/10 ML UDC PO SCH ×4 (07:20→20:37)
[2018-07-12 08:00] VITALS: BP 151/92
[2018-07-12] MEDS: GUAIFENESIN/DM 600MG/30MG ER TAB 12HR PO SCH ×2 (09:00→20:38)
[2018-07-12] MEDS: PREDNISONE 20MG TABLET PO SCH (09:00)
[2018-07-12] MEDS ORDERED: BISACODYL 10MG SUPP PR PRN (09:30)
[2018-07-12] MEDS ORDERED: MINERAL OIL ENEMA 133ML PR PRN (09:30)
[2018-07-12] MEDS: PANTOPRAZOLE SODIUM 40 MG/VIAL IV SCH (09:32)
[2018-07-12] MEDS ORDERED: HYDRALAZINE 20MG/ML VIAL IV PRN (11:00)
[2018-07-12] MEDS ORDERED: HYDRALAZINE 10 MG in SODIUM CHLORIDE 0.9% 49.5 ML IV PRN (11:15)
[2018-07-12 12:00] VITALS: BP 140/80
[2018-07-12] MEDS ORDERED: ENALAPRIL 2.5MG/2ML VIAL 2ML IV SCH (12:00)
[2018-07-12] MEDS ORDERED: ENALAPRIL 1.25MG/ML VIAL 1ML IV ONE (12:48)
[2018-07-12] MEDS: ENALAPRIL 1.25 MG in DEXTROSE 5% WATER 50 ML IV SCH ×2 (13:03→18:43)
[2018-07-12 16:00] VITALS: BP 177/77
[2018-07-12] MEDS: MONTELUKAST SODIUM 10MG TABLET PO SCH (16:10)
[2018-07-12 20:00] VITALS: BP 110/63
[2018-07-12] MEDS: LEVOFLOXACIN 250MG PREMIX 50 ML IV SCH (20:50)
[2018-07-13] VITALS (7 sets, daily range): BP systolic 123–150; BP diastolic 65–85
[2018-07-13] MEDS: DEXAMETHASONE 4MG/ML 1ML VIAL IV SCH ×4 (00:01→18:04)
[2018-07-13] MEDS: ENALAPRIL 1.25 MG in DEXTROSE 5% WATER 50 ML IV SCH ×4 (00:02→18:00)
[2018-07-13] MEDS: IPRATROPIUM/ALBUTEROL 0.5-3(2.5)MG/3ML NEB HHN SCH ×4 (01:09→21:01)
[2018-07-13] MEDS: DEXT 5%/LACTATED RINGERS 1,000 ML IV SCH (05:26)
[2018-07-13] MEDS: SUCRALFATE 1 G/10 ML UDC PO SCH ×4 (07:20→20:05)
[2018-07-13] MEDS ORDERED: BARIUM SULFATE 176 GM SUSP.RECON ONE (08:47)
[2018-07-13] MEDS: GUAIFENESIN/DM 600MG/30MG ER TAB 12HR PO SCH ×2 (08:51→20:05)
[2018-07-13] MEDS: PREDNISONE 20MG TABLET PO SCH (08:51)
[2018-07-13] MEDS: PANTOPRAZOLE SODIUM 40 MG/VIAL IV SCH (11:11)
[2018-07-13] MEDS: MONTELUKAST SODIUM 10MG TABLET PO SCH (18:05)
[2018-07-13] MEDS ORDERED: ATORVASTATIN CALCIUM 10MG TABLET PO SCH (21:00)
[2018-07-14] VITALS: BP 162/97
[2018-07-14] MEDS: DEXAMETHASONE 4MG/ML 1ML VIAL IV SCH ×3 (00:09→12:00)
[2018-07-14] MEDS: ENALAPRIL 1.25 MG in DEXTROSE 5% WATER 50 ML IV SCH ×3 (00:18→12:00)
[2018-07-14] MEDS: IPRATROPIUM/ALBUTEROL 0.5-3(2.5)MG/3ML NEB HHN SCH ×3 (01:03→15:16)
[2018-07-14 04:00] VITALS: BP 137/83
[2018-07-14] MEDS: DEXT 5%/LACTATED RINGERS 1,000 ML IV SCH ×2 (05:36→08:45)
[2018-07-14] MEDS: SUCRALFATE 1 G/10 ML UDC PO SCH ×2 (06:47→13:37)
[2018-07-14 08:00] VITALS: BP 134/82
[2018-07-14] MEDS: PANTOPRAZOLE SODIUM 40 MG/VIAL IV SCH (08:44)
[2018-07-14] MEDS: PREDNISONE 20MG TABLET PO SCH (08:44)
[2018-07-14] MEDS: GUAIFENESIN/DM 600MG/30MG ER TAB 12HR PO SCH (08:44)
[2018-07-14] MEDS ORDERED: ASPIRIN 81MG EC TABLET PO SCH (09:00)
[2018-07-14 12:00] VITALS: BP 145/88
[2018-07-14 14:41] LABS: CLARITY URINE CLEAR (CLEAR); COLOR URINE YELLOW (YELLOW); KETONES URINE NEGATIVE (NEGATIVE); LEUKOCYTE ESTERASE URINE NEGATIVE (NEGATIVE); NITRITE URINE NEGATIVE (NEGATIVE); OCCULT BLOOD URINE TRACE (NEGATIVE); PH URINE 6.5 (4.5-8.0); PROTEIN URINE NEGATIVE (NEGATIVE); UROBILINOGEN URINE 0.2 E.U./dL (0.2-1.0)
[2018-07-14 16:00] VITALS: BP 122/87
[2018-07-14] MEDS ORDERED: IPRATROPIUM/ALBUTEROL 0.5-3(2.5)MG/3ML NEB HHN SCH (18:00)
== END 2018-07-14 16:39 | DRG 471 ==
LOC: ER 01:48 → 7WST 06:46 → EDBEDREQTM 06:49 → EDBEDREQ 06:49 → ENRESERV 13:48 → MICUSO 07-09 13:28 → 6EST 07-11 18:40
PROVIDERS: ADMIT Internal Medicine; ATTEND Internal Medicine
PROC: 5A09357 Assistance with Respiratory Ventilation, Less than 24 Consecutive Hours, Continuous Positive Airway Pressure (ICD-10-PCS; principal; 2018-07-05)
PROC: 0RG20A0 Fusion of 2 or more Cervical Vertebral Joints with Interbody Fusion Device, Anterior Approach, Anterior Column, Open Approach (ICD-10-PCS; 2018-07-09)
PROC: 01N10ZZ Release Cervical Nerve, Open Approach (ICD-10-PCS; 2018-07-09)
PROC: 0RB30ZZ Excision of Cervical Vertebral Disc, Open Approach (ICD-10-PCS; 2018-07-09)
PROC: 00NW0ZZ Release Cervical Spinal Cord, Open Approach (ICD-10-PCS; 2018-07-09)
PROC: 4A11X4G Monitoring of Peripheral Nervous Electrical Activity, Intraoperative, External Approach (ICD-10-PCS; 2018-07-09)
DX: M47.12 Other spondylosis with myelopathy, cervical region (principal); J96.00 Acute respiratory failure, unspecified whether with hypoxia or hypercapnia; E43 Unspecified severe protein-calorie malnutrition; G82.50 Quadriplegia, unspecified; J69.0 Pneumonitis due to inhalation of food and vomit; J44.1 Chronic obstructive pulmonary disease with (acute) exacerbation; G95.20 Unspecified cord compression; I50.20 Unspecified systolic (congestive) heart failure; M48.02 Spinal stenosis, cervical region; M47.22 Other spondylosis with radiculopathy, cervical region; R13.10 Dysphagia, unspecified; E04.2 Nontoxic multinodular goiter; E78.00 Pure hypercholesterolemia, unspecified; I11.0 Hypertensive heart disease with heart failure; I25.10 Atherosclerotic heart disease of native coronary artery without angina pectoris; R26.9 Unspecified abnormalities of gait and mobility; I35.1 Nonrheumatic aortic (valve) insufficiency; D72.1 Eosinophilia; X58.XXXA Exposure to other specified factors, initial encounter; M25.78 Osteophyte, vertebrae; D64.9 Anemia, unspecified; M41.9 Scoliosis, unspecified; R47.02 Dysphasia; S50.821A Blister (nonthermal) of right forearm, initial encounter; Z86.73 Personal history of transient ischemic attack (TIA), and cerebral infarction without residual deficits; Z87.891 Personal history of nicotine dependence; I25.2 Old myocardial infarction; Y93.89 Activity, other specified; Z79.82 Long term (current) use of aspirin; Z79.899 Other long term (current) drug therapy; Z82.49 Family history of ischemic heart disease and other diseases of the circulatory system; Y92.89 Other specified places as the place of occurrence of the external cause; Y99.8 Other external cause status; Z68.20 Body mass index [BMI] 20.0-20.9, adult
CPT/HCPCS: 36415; 36600; 70490; 71045; 72040; 72141; 74230; 76000; 80048; 80061; 82375; 82550; 82553; 82805; 83036; 83880; 84134; 84478; 84484; 85014; 85018; 88304; 88311; 92610; 92611; 93005; 93306; 93970; 93971; 95925; 95926; 95928; 95929; 96374; 97116; 97162; 97166; 97168; 97530; 97535; 99291; C1713; C1893; C9113; J0690; J1100; J1170; J1650; J1956; J2250; J2270; J2405; J2704; J2710; J2920; J2930; J3010; J3490; J7040; J7050; J7060; J7070; J7121; J7512; J7611; J7620; L0172; A4315

== ENCOUNTER 2018-07-14 17:19 | Inpatient (IN) | payer MEDICARE ==
[~2018-07-14] VITALS: Ht 175.3 cm; Wt 57.2 kg
[~2018-07-14 17:19] MED LIST changes: -ASPI-1159 MT; +ASPI-1393 MT
[2018-07-14 18:36] VITALS: BP 151/80
[2018-07-14 18:42] VITALS: BP 151/80
[2018-07-14] MEDS ORDERED: MINERAL OIL ENEMA 133ML PR PRN (19:15)
[2018-07-14] MEDS ORDERED: ONDANSETRON HCL 4MG/2ML INJ IV PRN (19:15)
[2018-07-14] MEDS ORDERED: NITROGLYCERIN 0.4MG TABLET SL SL PRN (19:15)
[2018-07-14] MEDS ORDERED: MAGNESIUM/ALUMINUM HYDROXIDE/SIMETHICONE 30ML UDC PO PRN (19:15)
[2018-07-14] MEDS ORDERED: DOCUSATE SODIUM 100MG CAPSULE PO PRN (19:15)
[2018-07-14] MEDS ORDERED: ACETAMINOPHEN 325MG TABLET PO PRN (19:15)
[2018-07-14] MEDS ORDERED: IPRATROPIUM/ALBUTEROL 0.5-3(2.5)MG/3ML NEB HHN PRN (19:15)
[2018-07-14] MEDS ORDERED: MORPHINE SULFATE 4 MG/ML CPJ (NOT FOR IM USE) IV PRN (19:15)
[2018-07-14] MEDS ORDERED: BISACODYL 10MG SUPP PR PRN (19:15)
[2018-07-14] MEDS ORDERED: CLONIDINE 0.1MG TABLET PO PRN (19:15)
[2018-07-14 19:24] LABS: BASOPHILS % 0.1 % (0.0-2.0); HEMATOCRIT. 32.5 % (42.0-52.0); HEMOGLOBIN. 11.1 g/dL (14.0-18.0); LYMPHOCYTES % 8.6 % (20.0-50.0); MEAN CORPUSCULAR HEMOGLOBIN 31.6 pg (28.0-32.0); MEAN CORPUSCULAR VOLUME 92.8 fL (80.0-94.0); MEAN PLATELET VOLUME 8.1 fl (7.4-10.4); MONOCYTES % 8.1 % (2.0-8.0); NEUTROPHILS % 83.2 % (40.0-76.0); PLATELET 159 x1000/uL (130-400)
[2018-07-14 19:28] LABS: CHLORIDE 103 mEq/L (98-107)
[2018-07-14 20:00] VITALS: BP 130/76
[2018-07-14] MEDS ORDERED: ONDANSETRON HCL 4MG TABLET PO PRN (20:00)
[2018-07-14] MEDS ORDERED: HYDROCODONE/ACETAMINOPHEN 10/325MG TABLET PO PRN (20:00)
[2018-07-14] MEDS ORDERED: DEXT 5%/LACTATED RINGERS 1,000 ML IV SCH (20:00)
[2018-07-14] MEDS: IPRATROPIUM/ALBUTEROL 0.5-3(2.5)MG/3ML NEB HHN SCH (20:57)
[2018-07-14] MEDS: SUCRALFATE 1 G/10 ML UDC PO SCH (21:48)
[2018-07-14] MEDS: ATORVASTATIN CALCIUM 10MG TABLET PO SCH (21:49)
[2018-07-14] MEDS: GUAIFENESIN/DM 600MG/30MG ER TAB 12HR PO SCH (21:50)
[2018-07-15] MEDS ORDERED: DEXAMETHASONE 4MG/ML 1ML VIAL IV SCH ×2
[2018-07-15] MEDS: HYDROCODONE/ACETAMINOPHEN 10/325MG TABLET PO PRN (01:13)
[2018-07-15] MEDS: IPRATROPIUM/ALBUTEROL 0.5-3(2.5)MG/3ML NEB HHN SCH ×3 (01:40→18:00)
[2018-07-15] MEDS: SUCRALFATE 1 G/10 ML UDC PO SCH ×4 (05:54→23:04)
[2018-07-15 08:04] VITALS: BP 141/79
[2018-07-15] MEDS: GUAIFENESIN 200MG/10ML SUGAR FREE UDC PO PRN (08:22)
[2018-07-15] MEDS: ASPIRIN 81MG EC TABLET PO SCH (08:23)
[2018-07-15] MEDS: PREDNISONE 20MG TABLET PO SCH (08:23)
[2018-07-15] MEDS: GUAIFENESIN/DM 600MG/30MG ER TAB 12HR PO SCH ×2 (08:27→23:05)
[2018-07-15] MEDS: MONTELUKAST SODIUM 10MG TABLET PO SCH (16:39)
[2018-07-15 20:00] VITALS: BP 132/76
[2018-07-15] MEDS: ATORVASTATIN CALCIUM 10MG TABLET PO SCH (23:05)
[2018-07-16] MEDS: IPRATROPIUM/ALBUTEROL 0.5-3(2.5)MG/3ML NEB HHN SCH ×4 (02:01→19:50)
[2018-07-16 05:24] LABS: CLARITY URINE CLEAR (CLEAR); COLOR URINE YELLOW (YELLOW); KETONES URINE NEGATIVE (NEGATIVE); LEUKOCYTE ESTERASE URINE TRACE (NEGATIVE); NITRITE URINE NEGATIVE (NEGATIVE); OCCULT BLOOD URINE 3+ (NEGATIVE); PROTEIN URINE TRACE (NEGATIVE)
[2018-07-16] MEDS: SUCRALFATE 1 G/10 ML UDC PO SCH ×4 (05:52→21:20)
[2018-07-16 06:18] LABS: BASOPHILS % 0.1 % (0.0-2.0); EOSINOPHILS % 0.2 % (0.0-5.0); HEMATOCRIT. 30.1 % (42.0-52.0); HEMOGLOBIN. 10.3 g/dL (14.0-18.0); LYMPHOCYTES % 9.8 % (20.0-50.0); MEAN CORPUSCULAR HEMOGLOBIN 32.1 pg (28.0-32.0); MEAN CORPUSCULAR VOLUME 93.4 fL (80.0-94.0); MEAN PLATELET VOLUME 8.3 fl (7.4-10.4); MONOCYTES % 6.5 % (2.0-8.0); NEUTROPHILS % 83.4 % (40.0-76.0); PLATELET 148 x1000/uL (130-400); RED BLOOD CELL COUNT 3.23 mill/uL (4.7-6.1); RED CELL DISTRIBUTION WIDTH 14.1 % (11.6-14.6)
[2018-07-16 06:23] LABS: CHLORIDE 103 mEq/L (98-107)
[2018-07-16 06:36] LABS: TOTAL IRON BINDING CAPACITY 194 ug/dL (250-450)
[2018-07-16 06:38] LABS: FOLIC ACID (FOLATE) SERUM 6.5 ng/mL (>5.38)
[2018-07-16 06:40] LABS: PROSTRATE SPECIFIC AG TOTAL 1.93 ng/mL (0.0-4.0)
[2018-07-16 08:13] VITALS: BP 124/72
[2018-07-16] MEDS ORDERED: BISACODYL 5MG TABLET PO PRN (09:00)
[2018-07-16] MEDS: ASPIRIN 81MG EC TABLET PO SCH (09:08)
[2018-07-16] MEDS: POTASSIUM-SODIUM PHOSPHATE POWDER PACKET PO SCH ×2 (09:08→16:29)
[2018-07-16] MEDS: PREDNISONE 20MG TABLET PO SCH (09:08)
[2018-07-16] MEDS: GUAIFENESIN/DM 600MG/30MG ER TAB 12HR PO SCH ×2 (09:08→21:20)
[2018-07-16] MEDS: HYDROCODONE/ACETAMINOPHEN 10/325MG TABLET PO PRN (09:09)
[2018-07-16] MEDS ORDERED: BARIUM SULFATE 176 GM SUSP.RECON ONE (13:45)
[2018-07-16] MEDS: AMOXICILLIN/POTASSIUM CLAVULANATE 875/125MG TAB PO SCH ×2 (15:06→21:20)
[2018-07-16] MEDS ORDERED: POTASSIUM CHLORIDE 20MEQ TABLET SR PO NR (15:30)
[2018-07-16] MEDS ORDERED: POTASSIUM CHLORIDE 20MEQ/PACKET PO NR (16:15)
[2018-07-16] MEDS: CYANOCOBALAMIN 1000MCG/ML VIAL IM SCH (16:29)
[2018-07-16] MEDS: MONTELUKAST SODIUM 10MG TABLET PO SCH (16:29)
[2018-07-16] MEDS: MAGNESIUM OXIDE 400MG TABLET PO SCH (17:36)
[2018-07-16 19:33] LABS: *AMPHETAMINES SCREEN URINE NEGATIVE (NEGATIVE); *BARBITURATES SCREEN URINE NEGATIVE (NEGATIVE)
[2018-07-16 19:34] LABS: *BENZODIAZEPINES SCREEN URINE NEGATIVE (NEGATIVE); *COCAINE SCREEN URINE NEGATIVE (NEGATIVE); CANNABINOID URINE SCREEN NEGATIVE (NEGATIVE); METHADONE URINE SCREEN NEGATIVE (NEGATIVE); OPIATES URINE SCREEN PRESUMTIVE POSITIVE (NEGATIVE); PHENCYCLIDINE URINE SCREEN NEGATIVE (NEGATIVE)
[2018-07-16 20:00] VITALS: BP 110/70
[2018-07-16 20:23] LABS: ETHANOL BLOOD < 10 mg/dL
[2018-07-16 20:28] LABS: T4 FREE 1.12 ng/dL (0.76-1.46)
[2018-07-16] MEDS: ATORVASTATIN CALCIUM 10MG TABLET PO SCH (21:20)
[2018-07-16] MEDS: IRON SUCROSE COMPLEX 100 MG in SODIUM CHLORIDE 0.9% 95 ML IV SCH (23:44)
[2018-07-17] MEDS: IPRATROPIUM/ALBUTEROL 0.5-3(2.5)MG/3ML NEB HHN SCH ×4 (01:51→21:18)
[2018-07-17] MEDS: SUCRALFATE 1 G/10 ML UDC PO SCH ×4 (05:49→21:10)
[2018-07-17] MEDS: MAGNESIUM OXIDE 400MG TABLET PO SCH ×2 (05:50→17:51)
[2018-07-17 07:28] LABS: EOSINOPHILS % 1.1 % (0.0-5.0); HEMATOCRIT. 31.1 % (42.0-52.0); HEMOGLOBIN. 10.5 g/dL (14.0-18.0); LYMPHOCYTES % 8.2 % (20.0-50.0); MEAN CORPUSCULAR HEMOGLOBIN 31.8 pg (28.0-32.0); MEAN CORPUSCULAR VOLUME 93.7 fL (80.0-94.0); MEAN PLATELET VOLUME 8.1 fl (7.4-10.4); MONOCYTES % 6.8 % (2.0-8.0); NEUTROPHILS % 83.9 % (40.0-76.0); PLATELET 161 x1000/uL (130-400); RED BLOOD CELL COUNT 3.31 mill/uL (4.7-6.1); RED CELL DISTRIBUTION WIDTH 14.5 % (11.6-14.6)
[2018-07-17 07:54] LABS: CHLORIDE 102 mEq/L (98-107)
[2018-07-17 08:00] VITALS: BP 108/58
[2018-07-17 08:06] LABS: PHOSPHORUS 1.9 mg/dL (2.5-4.9)
[2018-07-17] MEDS: PREDNISONE 20MG TABLET PO SCH (09:25)
[2018-07-17] MEDS: AMOXICILLIN/POTASSIUM CLAVULANATE 875/125MG TAB PO SCH ×2 (09:25→21:10)
[2018-07-17] MEDS: ASPIRIN 81MG EC TABLET PO SCH (09:25)
[2018-07-17] MEDS: POTASSIUM-SODIUM PHOSPHATE POWDER PACKET PO SCH ×2 (09:25→17:51)
[2018-07-17] MEDS: GUAIFENESIN/DM 600MG/30MG ER TAB 12HR PO SCH ×2 (09:25→21:10)
[2018-07-17] MEDS: CLOPIDOGREL 75MG TABLET PO SCH (11:35)
[2018-07-17] MEDS: MONTELUKAST SODIUM 10MG TABLET PO SCH (17:51)
[2018-07-17] MEDS: CYANOCOBALAMIN 1000MCG/ML VIAL IM SCH (17:51)
[2018-07-17 20:00] VITALS: BP 127/72
[2018-07-17] MEDS: ATORVASTATIN CALCIUM 10MG TABLET PO SCH (21:09)
[2018-07-17 21:13] VITALS: BP 129/72
[2018-07-17] MEDS: IRON SUCROSE COMPLEX 100 MG in SODIUM CHLORIDE 0.9% 95 ML IV SCH (21:29)
[2018-07-18] MEDS: IPRATROPIUM/ALBUTEROL 0.5-3(2.5)MG/3ML NEB HHN SCH ×4 (02:15→20:58)
[2018-07-18] MEDS: MAGNESIUM OXIDE 400MG TABLET PO SCH ×2 (05:30→17:00)
[2018-07-18] MEDS: SUCRALFATE 1 G/10 ML UDC PO SCH ×4 (05:30→21:19)
[2018-07-18 07:25] LABS: BASOPHILS % 0.1 % (0.0-2.0); EOSINOPHILS % 2.2 % (0.0-5.0); HEMATOCRIT. 33.9 % (42.0-52.0); HEMOGLOBIN. 11.6 g/dL (14.0-18.0); MEAN CORPUSCULAR HEMOGLOBIN 32.3 pg (28.0-32.0); MEAN CORPUSCULAR VOLUME 94.9 fL (80.0-94.0); MEAN PLATELET VOLUME 7.9 fl (7.4-10.4); MONOCYTES % 8.8 % (2.0-8.0); NEUTROPHILS % 73.9 % (40.0-76.0); PLATELET 188 x1000/uL (130-400); RED BLOOD CELL COUNT 3.58 mill/uL (4.7-6.1); RED CELL DISTRIBUTION WIDTH 14.3 % (11.6-14.6)
[2018-07-18 07:49] VITALS: BP 124/78
[2018-07-18] MEDS: HYDROCODONE/ACETAMINOPHEN 10/325MG TABLET PO PRN (08:26)
[2018-07-18] MEDS: CLOPIDOGREL 75MG TABLET PO SCH (09:21)
[2018-07-18] MEDS: GUAIFENESIN 200MG/10ML SUGAR FREE UDC PO PRN (09:22)
[2018-07-18] MEDS: AMOXICILLIN/POTASSIUM CLAVULANATE 875/125MG TAB PO SCH ×2 (09:22→21:19)
[2018-07-18] MEDS: GUAIFENESIN/DM 600MG/30MG ER TAB 12HR PO SCH ×2 (09:22→21:19)
[2018-07-18] MEDS: POTASSIUM-SODIUM PHOSPHATE POWDER PACKET PO SCH ×2 (09:22→16:31)
[2018-07-18] MEDS: PREDNISONE 20MG TABLET PO SCH (09:22)
[2018-07-18] MEDS ORDERED: HYDROCODONE/ACETAMINOPHEN 10/325MG TABLET PO PRN ×2 (12:00)
[2018-07-18] MEDS: MONTELUKAST SODIUM 10MG TABLET PO SCH (16:31)
[2018-07-18] MEDS: CYANOCOBALAMIN 1000MCG/ML VIAL IM SCH (16:31)
[2018-07-18 20:00] VITALS: BP 131/69
[2018-07-18] MEDS: ATORVASTATIN CALCIUM 10MG TABLET PO SCH (21:19)
[2018-07-18] MEDS: DIPHENHYDRAMINE 50MG CAPSULE PO PRN (21:20)
[2018-07-18] MEDS: IRON SUCROSE COMPLEX 100 MG in SODIUM CHLORIDE 0.9% 95 ML IV SCH (21:31)
[2018-07-19] MEDS: IPRATROPIUM/ALBUTEROL 0.5-3(2.5)MG/3ML NEB HHN SCH ×4 (02:57→20:04)
[2018-07-19] MEDS: MAGNESIUM OXIDE 400MG TABLET PO SCH ×2 (05:31→17:20)
[2018-07-19] MEDS: SUCRALFATE 1 G/10 ML UDC PO SCH ×4 (05:31→21:04)
[2018-07-19 06:00] VITALS: BP 122/66
[2018-07-19 08:12] VITALS: BP 113/65
[2018-07-19] MEDS: AMOXICILLIN/POTASSIUM CLAVULANATE 875/125MG TAB PO SCH ×2 (09:04→21:05)
[2018-07-19] MEDS: PREDNISONE 20MG TABLET PO SCH (09:04)
[2018-07-19] MEDS: CLOPIDOGREL 75MG TABLET PO SCH (09:04)
[2018-07-19] MEDS: POTASSIUM-SODIUM PHOSPHATE POWDER PACKET PO SCH ×2 (09:04→17:20)
[2018-07-19] MEDS: GUAIFENESIN/DM 600MG/30MG ER TAB 12HR PO SCH ×2 (09:04→21:05)
[2018-07-19] MEDS: MONTELUKAST SODIUM 10MG TABLET PO SCH (17:20)
[2018-07-19] MEDS: CYANOCOBALAMIN 1000MCG/ML VIAL IM SCH (17:20)
[2018-07-19 20:00] VITALS: BP 121/61
[2018-07-19] MEDS: IRON SUCROSE COMPLEX 100 MG in SODIUM CHLORIDE 0.9% 95 ML IV SCH (21:04)
[2018-07-19] MEDS: DIPHENHYDRAMINE 50MG CAPSULE PO PRN (21:05)
[2018-07-19] MEDS: ATORVASTATIN CALCIUM 10MG TABLET PO SCH (21:05)
[2018-07-20] MEDS: IPRATROPIUM/ALBUTEROL 0.5-3(2.5)MG/3ML NEB HHN SCH ×4 (01:26→21:07)
[2018-07-20] MEDS: SUCRALFATE 1 G/10 ML UDC PO SCH ×4 (05:25→20:43)
[2018-07-20] MEDS: MAGNESIUM OXIDE 400MG TABLET PO SCH ×2 (05:40→17:00)
[2018-07-20 06:11] LABS: BASOPHILS % 0.1 % (0.0-2.0); EOSINOPHILS % 1.6 % (0.0-5.0); HEMATOCRIT. 30.6 % (42.0-52.0); HEMOGLOBIN. 10.7 g/dL (14.0-18.0); LYMPHOCYTES % 12.8 % (20.0-50.0); MEAN CORPUSCULAR HEMOGLOBIN 32.8 pg (28.0-32.0); MEAN CORPUSCULAR VOLUME 93.6 fL (80.0-94.0); MEAN PLATELET VOLUME 7.4 fl (7.4-10.4); MONOCYTES % 10.4 % (2.0-8.0); NEUTROPHILS % 75.1 % (40.0-76.0); PLATELET 224 x1000/uL (130-400); RED BLOOD CELL COUNT 3.27 mill/uL (4.7-6.1); RED CELL DISTRIBUTION WIDTH 14.8 % (11.6-14.6)
[2018-07-20 06:23] LABS: CHLORIDE 106 mEq/L (98-107)
[2018-07-20 06:29] LABS: PHOSPHORUS 2.1 mg/dL (2.5-4.9)
[2018-07-20 07:44] VITALS: BP 124/75
[2018-07-20] MEDS: POTASSIUM-SODIUM PHOSPHATE POWDER PACKET PO SCH ×2 (08:23→17:00)
[2018-07-20] MEDS: GUAIFENESIN/DM 600MG/30MG ER TAB 12HR PO SCH ×2 (08:24→20:44)
[2018-07-20] MEDS: AMOXICILLIN/POTASSIUM CLAVULANATE 875/125MG TAB PO SCH ×2 (08:24→20:44)
[2018-07-20] MEDS: TAMSULOSIN HCL 0.4MG SR CAPSULE PO SCH (08:24)
[2018-07-20] MEDS: CLOPIDOGREL 75MG TABLET PO SCH (08:24)
[2018-07-20] MEDS: ASCORBIC ACID 500 MG TABLET PO SCH (08:24)
[2018-07-20] MEDS: ZINC SULFATE 220 MG ( 50 ) CAPSULE PO SCH (08:24)
[2018-07-20] MEDS: PREDNISONE 20MG TABLET PO SCH (08:24)
[2018-07-20] MEDS: CYANOCOBALAMIN 1000MCG/ML VIAL IM SCH (17:00)
[2018-07-20] MEDS: MONTELUKAST SODIUM 10MG TABLET PO SCH (17:00)
[2018-07-20 20:00] VITALS: BP 133/80
[2018-07-20] MEDS: ATORVASTATIN CALCIUM 10MG TABLET PO SCH (20:43)
[2018-07-20] MEDS: IRON SUCROSE COMPLEX 100 MG in SODIUM CHLORIDE 0.9% 95 ML IV SCH (20:43)
[2018-07-21] MEDS: IPRATROPIUM/ALBUTEROL 0.5-3(2.5)MG/3ML NEB HHN SCH ×4 (01:10→22:21)
[2018-07-21] MEDS: MAGNESIUM OXIDE 400MG TABLET PO SCH ×2 (05:29→16:31)
[2018-07-21] MEDS: SUCRALFATE 1 G/10 ML UDC PO SCH ×4 (05:29→21:26)
[2018-07-21 08:12] VITALS: BP 118/68
[2018-07-21] MEDS: PREDNISONE 20MG TABLET PO SCH (08:19)
[2018-07-21] MEDS: ZINC SULFATE 220 MG ( 50 ) CAPSULE PO SCH (08:19)
[2018-07-21] MEDS: POTASSIUM-SODIUM PHOSPHATE POWDER PACKET PO SCH ×2 (08:19→16:31)
[2018-07-21] MEDS: ASCORBIC ACID 500 MG TABLET PO SCH (08:19)
[2018-07-21] MEDS: TAMSULOSIN HCL 0.4MG SR CAPSULE PO SCH (08:19)
[2018-07-21] MEDS: AMOXICILLIN/POTASSIUM CLAVULANATE 875/125MG TAB PO SCH ×2 (08:19→21:26)
[2018-07-21] MEDS: CLOPIDOGREL 75MG TABLET PO SCH (08:19)
[2018-07-21] MEDS: GUAIFENESIN/DM 600MG/30MG ER TAB 12HR PO SCH ×2 (08:19→21:26)
[2018-07-21] MEDS: MONTELUKAST SODIUM 10MG TABLET PO SCH (16:31)
[2018-07-21 20:00] VITALS: BP 123/67
[2018-07-21] MEDS: ATORVASTATIN CALCIUM 10MG TABLET PO SCH (21:26)
[2018-07-22] MEDS: IPRATROPIUM/ALBUTEROL 0.5-3(2.5)MG/3ML NEB HHN SCH ×4 (02:37→20:18)
[2018-07-22] MEDS: SUCRALFATE 1 G/10 ML UDC PO SCH ×4 (05:41→21:15)
[2018-07-22] MEDS: MAGNESIUM OXIDE 400MG TABLET PO SCH ×2 (05:41→18:17)
[2018-07-22 07:02] LABS: BASOPHILS % 0.4 % (0.0-2.0); EOSINOPHILS % 2.2 % (0.0-5.0); HEMATOCRIT. 29.8 % (42.0-52.0); HEMOGLOBIN. 10.1 g/dL (14.0-18.0); LYMPHOCYTES % 17.9 % (20.0-50.0); MEAN CORPUSCULAR HEMOGLOBIN 32.1 pg (28.0-32.0); MEAN CORPUSCULAR VOLUME 94.6 fL (80.0-94.0); MEAN PLATELET VOLUME 7.3 fl (7.4-10.4); MONOCYTES % 10.5 % (2.0-8.0); PLATELET 217 x1000/uL (130-400); RED BLOOD CELL COUNT 3.15 mill/uL (4.7-6.1); RED CELL DISTRIBUTION WIDTH 14.5 % (11.6-14.6)
[2018-07-22 07:18] LABS: CHLORIDE 103 mEq/L (98-107)
[2018-07-22 07:25] LABS: PHOSPHORUS 1.7 mg/dL (2.5-4.9)
[2018-07-22 08:42] VITALS: BP 118/68
[2018-07-22] MEDS: GUAIFENESIN/DM 600MG/30MG ER TAB 12HR PO SCH ×2 (09:56→21:20)
[2018-07-22] MEDS: AMOXICILLIN/POTASSIUM CLAVULANATE 875/125MG TAB PO SCH ×2 (09:56→21:15)
[2018-07-22] MEDS: PREDNISONE 20MG TABLET PO SCH (09:57)
[2018-07-22] MEDS: TAMSULOSIN HCL 0.4MG SR CAPSULE PO SCH (09:57)
[2018-07-22] MEDS: POTASSIUM-SODIUM PHOSPHATE POWDER PACKET PO SCH ×2 (09:57→18:17)
[2018-07-22] MEDS: ASCORBIC ACID 500 MG TABLET PO SCH (09:57)
[2018-07-22] MEDS: ZINC SULFATE 220 MG ( 50 ) CAPSULE PO SCH (09:57)
[2018-07-22] MEDS: CLOPIDOGREL 75MG TABLET PO SCH (09:57)
[2018-07-22] MEDS: MONTELUKAST SODIUM 10MG TABLET PO SCH (18:17)
[2018-07-22 20:00] VITALS: BP 118/73
[2018-07-22] MEDS: ATORVASTATIN CALCIUM 10MG TABLET PO SCH (21:15)
[2018-07-23] MEDS: IPRATROPIUM/ALBUTEROL 0.5-3(2.5)MG/3ML NEB HHN SCH ×3 (00:51→21:06)
[2018-07-23] MEDS: SUCRALFATE 1 G/10 ML UDC PO SCH ×4 (05:31→21:53)
[2018-07-23] MEDS: MAGNESIUM OXIDE 400MG TABLET PO SCH ×2 (05:31→17:18)
[2018-07-23 08:02] VITALS: BP 116/74
[2018-07-23] MEDS: ZINC SULFATE 220 MG ( 50 ) CAPSULE PO SCH (09:02)
[2018-07-23] MEDS: AMOXICILLIN/POTASSIUM CLAVULANATE 875/125MG TAB PO SCH (09:02)
[2018-07-23] MEDS: PREDNISONE 20MG TABLET PO SCH (09:02)
[2018-07-23] MEDS: ASCORBIC ACID 500 MG TABLET PO SCH (09:02)
[2018-07-23] MEDS: TAMSULOSIN HCL 0.4MG SR CAPSULE PO SCH (09:02)
[2018-07-23] MEDS: CLOPIDOGREL 75MG TABLET PO SCH (09:02)
[2018-07-23] MEDS: GUAIFENESIN/DM 600MG/30MG ER TAB 12HR PO SCH ×2 (09:02→22:14)
[2018-07-23] MEDS: POTASSIUM-SODIUM PHOSPHATE POWDER PACKET PO SCH ×2 (09:03→17:18)
[2018-07-23] MEDS: MONTELUKAST SODIUM 10MG TABLET PO SCH (17:18)
[2018-07-23 20:00] VITALS: BP 126/75
[2018-07-23] MEDS: ATORVASTATIN CALCIUM 10MG TABLET PO SCH (22:14)
[2018-07-24] MEDS: IPRATROPIUM/ALBUTEROL 0.5-3(2.5)MG/3ML NEB HHN SCH ×2 (02:32→21:00)
[2018-07-24 04:15] LABS: 25-HYDROXY VITAMIN D3 11 ng/mL (.)
[2018-07-24] MEDS: MAGNESIUM OXIDE 400MG TABLET PO SCH ×2 (05:43→17:00)
[2018-07-24] MEDS: SUCRALFATE 1 G/10 ML UDC PO SCH ×4 (05:43→22:01)
[2018-07-24 07:53] LABS: BASOPHILS % 0.6 % (0.0-2.0); EOSINOPHILS % 3.1 % (0.0-5.0); HEMATOCRIT. 31.7 % (42.0-52.0); HEMOGLOBIN. 10.8 g/dL (14.0-18.0); LYMPHOCYTES % 22.9 % (20.0-50.0); MEAN CORPUSCULAR HEMOGLOBIN 32.4 pg (28.0-32.0); MEAN CORPUSCULAR VOLUME 95.5 fL (80.0-94.0); MEAN PLATELET VOLUME 7.1 fl (7.4-10.4); MONOCYTES % 10.3 % (2.0-8.0); NEUTROPHILS % 63.1 % (40.0-76.0); PLATELET 245 x1000/uL (130-400); RED BLOOD CELL COUNT 3.32 mill/uL (4.7-6.1); RED CELL DISTRIBUTION WIDTH 14.9 % (11.6-14.6)
[2018-07-24 08:00] VITALS: BP 113/70
[2018-07-24 08:56] LABS: CHLORIDE 103 mEq/L (98-107)
[2018-07-24 09:03] LABS: PHOSPHORUS 1.8 mg/dL (2.5-4.9)
[2018-07-24] MEDS: PREDNISONE 20MG TABLET PO SCH (10:24)
[2018-07-24] MEDS: ASCORBIC ACID 500 MG TABLET PO SCH (10:24)
[2018-07-24] MEDS: CLOPIDOGREL 75MG TABLET PO SCH (10:24)
[2018-07-24] MEDS: POTASSIUM-SODIUM PHOSPHATE POWDER PACKET PO SCH ×2 (10:25→16:57)
[2018-07-24] MEDS: ZINC SULFATE 220 MG ( 50 ) CAPSULE PO SCH (10:25)
[2018-07-24] MEDS: TAMSULOSIN HCL 0.4MG SR CAPSULE PO SCH (10:25)
[2018-07-24] MEDS: GUAIFENESIN/DM 600MG/30MG ER TAB 12HR PO SCH ×2 (10:28→22:01)
[2018-07-24] MEDS: MONTELUKAST SODIUM 10MG TABLET PO SCH (16:57)
[2018-07-24 20:00] VITALS: BP 103/63
[2018-07-24] MEDS: ATORVASTATIN CALCIUM 10MG TABLET PO SCH (22:01)
[2018-07-25] MEDS: IPRATROPIUM/ALBUTEROL 0.5-3(2.5)MG/3ML NEB HHN SCH ×3 (01:02→13:21)
[2018-07-25] MEDS: MAGNESIUM OXIDE 400MG TABLET PO SCH (06:43)
[2018-07-25] MEDS: SUCRALFATE 1 G/10 ML UDC PO SCH (06:43)
[2018-07-25 08:09] VITALS: BP 105/63
[2018-07-25] MEDS: TAMSULOSIN HCL 0.4MG SR CAPSULE PO SCH (09:33)
[2018-07-25] MEDS: ZINC SULFATE 220 MG ( 50 ) CAPSULE PO SCH (09:33)
[2018-07-25] MEDS: PREDNISONE 20MG TABLET PO SCH (09:34)
[2018-07-25] MEDS: GUAIFENESIN/DM 600MG/30MG ER TAB 12HR PO SCH (09:34)
[2018-07-25] MEDS: POTASSIUM-SODIUM PHOSPHATE POWDER PACKET PO SCH (09:34)
[2018-07-25] MEDS: ASCORBIC ACID 500 MG TABLET PO SCH (09:34)
[2018-07-25] MEDS: CLOPIDOGREL 75MG TABLET PO SCH (09:34)
[2018-07-25 11:58] VITALS: BP 109/64
== END 2018-07-25 15:20 | disposition home health service (06) | DRG 91 ==
PROVIDERS: ADMIT Physical Medicine & Rehabilitation Spinal Cord Injury Medicine; ATTEND Internal Medicine
PROC: 4A10X4Z Monitoring of Central Nervous Electrical Activity, External Approach (ICD-10-PCS; principal; 2018-07-17)
DX: G92 Toxic encephalopathy (principal); G82.50 Quadriplegia, unspecified; E43 Unspecified severe protein-calorie malnutrition; J69.0 Pneumonitis due to inhalation of food and vomit; I63.9 Cerebral infarction, unspecified; J96.90 Respiratory failure, unspecified, unspecified whether with hypoxia or hypercapnia; M50.01 Cervical disc disorder with myelopathy, high cervical region; J44.1 Chronic obstructive pulmonary disease with (acute) exacerbation; I50.22 Chronic systolic (congestive) heart failure; M47.12 Other spondylosis with myelopathy, cervical region; N17.9 Acute kidney failure, unspecified; M50.021 Cervical disc disorder at C4-C5 level with myelopathy; M50.022 Cervical disc disorder at C5-C6 level with myelopathy; M50.023 Cervical disc disorder at C6-C7 level with myelopathy; Z68.1 Body mass index [BMI] 19.9 or less, adult; R13.10 Dysphagia, unspecified; R53.81 Other malaise; I11.0 Hypertensive heart disease with heart failure; M48.02 Spinal stenosis, cervical region; F03.90 Unspecified dementia, unspecified severity, without behavioral disturbance, psychotic disturbance, mood disturbance, and anxiety; E83.39 Other disorders of phosphorus metabolism; L89.899 Pressure ulcer of other site, unspecified stage; E78.00 Pure hypercholesterolemia, unspecified; M54.5 Low back pain; G89.29 Other chronic pain; D72.1 Eosinophilia; E83.51 Hypocalcemia; S50.821A Blister (nonthermal) of right forearm, initial encounter; X58.XXXA Exposure to other specified factors, initial encounter; E11.9 Type 2 diabetes mellitus without complications; N40.1 Benign prostatic hyperplasia with lower urinary tract symptoms; R33.8 Other retention of urine; M47.22 Other spondylosis with radiculopathy, cervical region; D64.9 Anemia, unspecified; R47.02 Dysphasia; Z86.73 Personal history of transient ischemic attack (TIA), and cerebral infarction without residual deficits; Z87.891 Personal history of nicotine dependence; Z98.1 Arthrodesis status; Z88.6 Allergy status to analgesic agent; Z79.899 Other long term (current) drug therapy; Z79.82 Long term (current) use of aspirin; Z79.51 Long term (current) use of inhaled steroids; Z82.49 Family history of ischemic heart disease and other diseases of the circulatory system; Y93.89 Activity, other specified; Y92.89 Other specified places as the place of occurrence of the external cause; Y99.8 Other external cause status; Z86.711 Personal history of pulmonary embolism
CPT/HCPCS: 36415; 70544; 70551; 71045; 74230; 80048; 80305; 80320; 82140; 82306; 82607; 82728; 82746; 83036; 83540; 83550; 83735; 84100; 84134; 84153; 84439; 84443; 84481; 92523; 92610; 92611; 93880; 93970; 94640; 97110; 97112; 97116; 97162; 97166; 97530; 97535; A6261; J3420; J7050; J7512; J7620; L0172; Q0163; A5200; G0103; G0480

== ENCOUNTER 2018-08-12 10:38 | Emergency (ER) | payer MEDICARE ==
[~2018-08-12] VITALS: Ht 175.3 cm; Wt 59.0 kg
[~2018-08-12 10:38] MED LIST changes: -ASPI-1393 MT; -ATOR10TA MT; -NITR-87 MT; -P20 MT; -PROT40 MT; -SUCR1TAB30 MT
[2018-08-12] MEDS ORDERED: SODIUM CHLORIDE 0.9% 1,000 ML IV ONE (12:45)
[2018-08-12] MEDS ORDERED: TRAMADOL 50MG TABLET PO ONE (13:15)
[2018-08-12] MEDS ORDERED: VISCOUS LIDOCAINE 2% 15 ML UDC MM PRN (13:15)
[2018-08-12 13:54] LABS: CLARITY URINE CLOUDY (CLEAR); COLOR URINE YELLOW (YELLOW); KETONES URINE NEGATIVE (NEGATIVE); LEUKOCYTE ESTERASE URINE 2+ (NEGATIVE); NITRITE URINE NEGATIVE (NEGATIVE); OCCULT BLOOD URINE 3+ (NEGATIVE); PH URINE 5.5 (4.5-8.0); PROTEIN URINE 2+ (NEGATIVE); SPECIFIC GRAVITY URINE 1.023 (1.005-1.030); UROBILINOGEN URINE 0.2 E.U./dL (0.2-1.0)
[2018-08-12 15:45] VITALS: BP 135/87
== END 2018-08-12 15:47 | disposition home or self-care (01) ==
LOC: ER 10:38
DX: N40.0 Benign prostatic hyperplasia without lower urinary tract symptoms (principal); J45.909 Unspecified asthma, uncomplicated; Z97.8 Presence of other specified devices; Z86.73 Personal history of transient ischemic attack (TIA), and cerebral infarction without residual deficits; Z88.5 Allergy status to narcotic agent; Z98.890 Other specified postprocedural states
CPT/HCPCS: 81003; 87077; 87086; 87186; 99283; J7030

== ENCOUNTER 2018-08-14 11:36 | Emergency (ER) | payer MEDICARE ==
[~2018-08-14] VITALS: Ht 165.1 cm; Wt 57.0 kg
[2018-08-14] MEDS ORDERED: SODIUM CHLORIDE 0.9% 1,000 ML IV ONE (12:38)
[2018-08-14] MEDS ORDERED: CEFTRIAXONE 1 G PREMIX 50 ML IV ONE (12:45)
[2018-08-14] MEDS ORDERED: KETOROLAC 15MG/ML VIAL IV ONE (12:45)
[2018-08-14 13:02] LABS: BASOPHILS % 0.6 % (0.0-2.0); EOSINOPHILS % 4.5 % (0.0-5.0); HEMATOCRIT. 37.8 % (42.0-52.0); HEMOGLOBIN. 12.7 g/dL (14.0-18.0); LYMPHOCYTES % 23.7 % (20.0-50.0); MEAN CORPUSCULAR HEMOGLOBIN 32.2 pg (28.0-32.0); MEAN CORPUSCULAR VOLUME 96.1 fL (80.0-94.0); MEAN PLATELET VOLUME 7.7 fl (7.4-10.4); MONOCYTES % 9.3 % (2.0-8.0); NEUTROPHILS % 61.9 % (40.0-76.0); PLATELET 193 x1000/uL (130-400); RED BLOOD CELL COUNT 3.93 mill/uL (4.7-6.1); RED CELL DISTRIBUTION WIDTH 15.4 % (11.6-14.6)
[2018-08-14 13:08] LABS: CHLORIDE 110 mEq/L (98-107)
[2018-08-14 13:47] LABS: CLARITY URINE CLOUDY (CLEAR); COLOR URINE YELLOW (YELLOW); KETONES URINE NEGATIVE (NEGATIVE); LEUKOCYTE ESTERASE URINE 3+ (NEGATIVE); NITRITE URINE POSITIVE (NEGATIVE); OCCULT BLOOD URINE 3+ (NEGATIVE); PROTEIN URINE 2+ (NEGATIVE); SPECIFIC GRAVITY URINE 1.016 (1.005-1.030)
[2018-08-14 15:55] VITALS: BP 142/76
== END 2018-08-14 16:23 | disposition home or self-care (01) ==
LOC: ER 12:39
DX: N39.0 Urinary tract infection, site not specified (principal); Z46.6 Encounter for fitting and adjustment of urinary device; J45.909 Unspecified asthma, uncomplicated; Z86.73 Personal history of transient ischemic attack (TIA), and cerebral infarction without residual deficits; Z87.438 Personal history of other diseases of male genital organs; Z88.5 Allergy status to narcotic agent; Z79.899 Other long term (current) drug therapy
CPT/HCPCS: 36415; 80053; 81003; 85025; 87077; 87086; 87186; 93005; 96365; 96366; 96375; 99284; J0696; J1885; J7030

== ENCOUNTER → 2018-09-08 | Outpatient (CLI) | payer MEDICARE | END | disposition home or self-care (01) | LOC: RAD 08:49 | PROVIDERS: ATTEND Neurological Surgery | DX: M50.20 Other cervical disc displacement, unspecified cervical region (principal); M47.816 Spondylosis without myelopathy or radiculopathy, lumbar region | CPT/HCPCS: 72052 ==

== ENCOUNTER 2018-10-27 03:25 | Inpatient (IN) | payer MEDICARE ==
[~2018-10-27] VITALS: Ht 152.4 cm; Wt 49.9 kg
[2018-10-27] MEDS ORDERED: IPRATROPIUM BROMIDE (0.02%) 0.5MG/2.5ML NEB HHN STA (05:10)
[2018-10-27] MEDS ORDERED: METHYLPREDNISOLONE SOD SUCC 125 MG/2 ML VIAL IV STA (05:10)
[2018-10-27] MEDS ORDERED: ALBUTEROL (0.083%) 2.5MG/3ML NEB HHN STA (05:10)
[2018-10-27 05:34] LABS: BASOPHILS % 0.7 % (0.0-2.0); EOSINOPHILS % 11.7 % (0.0-5.0); HEMATOCRIT. 42.1 % (42.0-52.0); HEMOGLOBIN. 14.2 g/dL (14.0-18.0); MEAN CORPUSCULAR HEMOGLOBIN 31.2 pg (28.0-32.0); MEAN CORPUSCULAR VOLUME 92.2 fL (80.0-94.0); NEUTROPHILS % 32.6 % (40.0-76.0); PLATELET 134 x1000/uL (130-400); RED BLOOD CELL COUNT 4.56 mill/uL (4.7-6.1); RED CELL DISTRIBUTION WIDTH 14.5 % (11.6-14.6)
[2018-10-27 05:38] LABS: CHLORIDE 108 mEq/L (98-107)
[2018-10-27 05:45] LABS: BG BASE EXCESS 1.6 mmol/L (-2.0-2.0); BG CARBOXYHEMOGLOBIN 0.5 % (0.5-1.5); BG DEOXYHEMOGLOBIN 1.6 % (0.0-5.0); BG FRACTION INSPIRED OXYGEN 28; BG HCO3 ACT 27.8 mmol/L (22.0-26.0); BG METHEMOGLOBIN 0.1 % (0.0-1.5); BG OXYGEN SATURATION 98.4 % (92.0-98.5); BG OXYHEMOGLOBIN 97.8 % (94.0-97.0); BG PCO2 49.6 mmHg (35.0-45.0); BG PH 7.366 (7.350-7.450); BG PO2 135.7 mmHg (75.0-100.0); BG SAMPLE SITE RIGHT RADIAL; BG TOTAL HEMOGLOBIN 13.8 g/dL (12.0-18.0); BG VENT MODE NASAL CANNULA
[2018-10-27] MEDS ORDERED: ONDANSETRON HCL 4MG/2ML INJ IV PRN (07:15)
[2018-10-27] MEDS ORDERED: IPRATROPIUM/ALBUTEROL 0.5-3(2.5)MG/3ML NEB INH PRN (07:15)
[2018-10-27] MEDS ORDERED: ACETAMINOPHEN 325MG TABLET PO PRN (07:15)
[2018-10-27] MEDS ORDERED: CLONIDINE 0.1MG TABLET PO PRN (07:15)
[2018-10-27] MEDS ORDERED: MAGNESIUM/ALUMINUM HYDROXIDE/SIMETHICONE 30ML UDC PO PRN (07:15)
[2018-10-27] MEDS ORDERED: MORPHINE SULFATE 2 MG/ML CPJ (NOT FOR IM USE) IV PRN (07:15)
[2018-10-27] MEDS ORDERED: GUAIFENESIN 200MG/10ML SUGAR FREE UDC PO PRN (07:15)
[2018-10-27] MEDS ORDERED: DOCUSATE SODIUM 100MG CAPSULE PO PRN (07:15)
[2018-10-27 09:00] VITALS: BP 136/77
[2018-10-27] MEDS ORDERED: POTASSIUM CHLORIDE 10MEQ TABLET SR PO NR (11:30)
[2018-10-27] MEDS ORDERED: MECLIZINE 25MG TABLET PO PRN (11:30)
[2018-10-27] MEDS: LEVOFLOXACIN 500MG PREMIX 100 ML IV SCH (11:34)
[2018-10-27] MEDS: ENOXAPARIN 40MG/0.4ML SYR SUBCUT SCH (11:34)
[2018-10-27] MEDS: AMLODIPINE 10MG TABLET PO SCH (11:35)
[2018-10-27] MEDS: METHYLPREDNISOLONE SOD SUCC 125 MG/2 ML VIAL IV SCH ×2 (11:45→17:41)
[2018-10-27 12:00] VITALS: BP 143/79
[2018-10-27] MEDS: IPRATROPIUM/ALBUTEROL 0.5-3(2.5)MG/3ML NEB INH SCH ×2 (13:07→19:58)
[2018-10-27 16:00] VITALS: BP_SYST 103; BP_SYST 134; BP_SYST 159; BP_DIAS 70; BP_DIAS 73; BP_DIAS 95
[2018-10-27 20:00] VITALS: BP_SYST 135; BP_SYST 144; BP_SYST 155; BP_DIAS 78; BP_DIAS 92
[2018-10-28] VITALS: BP 120/83
[2018-10-28] MEDS: METHYLPREDNISOLONE SOD SUCC 125 MG/2 ML VIAL IV SCH ×2 (00:13→06:06)
[2018-10-28] MEDS: IPRATROPIUM/ALBUTEROL 0.5-3(2.5)MG/3ML NEB INH SCH ×4 (01:27→21:20)
[2018-10-28 04:00] VITALS: BP 129/72
[2018-10-28 06:36] LABS: BASOPHILS % 0.1 % (0.0-2.0); HEMATOCRIT. 35.5 % (42.0-52.0); MEAN CORPUSCULAR HEMOGLOBIN 31.1 pg (28.0-32.0); MEAN CORPUSCULAR VOLUME 91.6 fL (80.0-94.0); MEAN PLATELET VOLUME 8.4 fl (7.4-10.4); MONOCYTES % 2.7 % (2.0-8.0); NEUTROPHILS % 88.2 % (40.0-76.0); PLATELET 123 x1000/uL (130-400); RED BLOOD CELL COUNT 3.88 mill/uL (4.7-6.1); RED CELL DISTRIBUTION WIDTH 14.3 % (11.6-14.6)
[2018-10-28 06:47] LABS: CHLORIDE 106 mEq/L (98-107)
[2018-10-28 08:00] VITALS: BP 126/78
[2018-10-28] MEDS: ENOXAPARIN 40MG/0.4ML SYR SUBCUT SCH (09:10)
[2018-10-28] MEDS: AMLODIPINE 10MG TABLET PO SCH (09:11)
[2018-10-28] MEDS: LEVOFLOXACIN 500MG PREMIX 100 ML IV SCH (09:35)
[2018-10-28 15:55] VITALS: BP 136/76
[2018-10-28] MEDS: FOLIC ACID/VITAMIN B COMP W-C TABLET PO SCH (17:23)
[2018-10-28 20:00] VITALS: BP_SYST 135; BP_SYST 140; BP_SYST 152; BP_DIAS 77; BP_DIAS 89
[2018-10-28] MEDS: METHYLPREDNISOLONE SOD SUCC 40 MG/ML VIAL IV SCH (21:45)
[2018-10-29] VITALS: BP 135/80
[2018-10-29 04:00] VITALS: BP 133/84
[2018-10-29 08:00] VITALS: BP 128/77
[2018-10-29] MEDS: ENOXAPARIN 40MG/0.4ML SYR SUBCUT SCH (08:03)
[2018-10-29] MEDS: FOLIC ACID/VITAMIN B COMP W-C TABLET PO SCH (08:03)
[2018-10-29] MEDS: METHYLPREDNISOLONE SOD SUCC 40 MG/ML VIAL IV SCH (08:03)
[2018-10-29] MEDS: AMLODIPINE 10MG TABLET PO SCH (08:04)
[2018-10-29] MEDS ORDERED: LEVOFLOXACIN 250MG TABLET PO SCH (11:00)
[2018-10-29 12:00] VITALS: BP 118/79
[2018-10-29] MEDS: IPRATROPIUM/ALBUTEROL 0.5-3(2.5)MG/3ML NEB INH SCH (13:19)
[2018-10-29 14:30] VITALS: BP 123/69
== END 2018-10-29 15:29 | disposition home or self-care (01) | DRG 189 ==
LOC: ER 03:25 → 7WST 05:22 → EDBEDREQ 05:25 → EDBEDREQTM 05:25 → ENRESERV 07:05 → SUPCPDRO 07:10
PROVIDERS: ADMIT Internal Medicine; ATTEND Internal Medicine
DX: J96.00 Acute respiratory failure, unspecified whether with hypoxia or hypercapnia (principal); G82.50 Quadriplegia, unspecified; J44.1 Chronic obstructive pulmonary disease with (acute) exacerbation; Z86.73 Personal history of transient ischemic attack (TIA), and cerebral infarction without residual deficits; M25.512 Pain in left shoulder; I11.0 Hypertensive heart disease with heart failure; I50.9 Heart failure, unspecified; R13.19 Other dysphagia; Z87.891 Personal history of nicotine dependence; Z88.5 Allergy status to narcotic agent; Z79.899 Other long term (current) drug therapy
CPT/HCPCS: 36415; 36600; 71045; 72052; 72141; 82375; 82805; 83605; 83880; 84484; 93005; 93970; 94640; 99285; J1650; J1956; J2270; J2920; J2930; J7611; J7620